=== PATIENT | female | born 1970 | race Caucasian/White ===

== ENCOUNTER 2021-12-28 08:28 | Outpatient (CLI) | payer OTHER, BC, SELFPAY ==
[2021-12-28 13:56] LABS: Iron* 30 ug/dL (37-170)
[2021-12-28 14:05] LABS: Percent Iron Saturation 8 % (20-50); Total Iron Binding Capacity 389 ug/dL (265-497)
[2021-12-28 14:18] LABS: Vitamin D 25 Hydroxy* 18 ng/mL (30-80)
[2021-12-28 14:38] LABS: HIV 1/2/P24 Combo Screen* Negative (Negative)
[2021-12-28 14:48] LABS: Vitamin B12* 879 pg/mL (243-894)
[2021-12-28 14:53] LABS: Hepatitis C Virus Antibody* Positive (Negative)
== END 2021-12-28 08:29 | disposition home or self-care (01) ==
PROVIDERS: PCP Physician Assistant Medical; Visit Provider Physician Assistant Medical
DX: D64.9 Anemia, unspecified (principal); R53.83 Other fatigue; E53.8 Deficiency of other specified B group vitamins; Z13.0 Encounter for screening for diseases of the blood and blood-forming organs and certain disorders involving the immune mechanism
CPT/HCPCS: 82306; 82607; 83540; 83550; 86703; 86803

== ENCOUNTER 2022-01-26 16:15 | Outpatient (CLI) | payer OTHER, BC, SELFPAY ==
[2022-01-26 21:16] LABS: Lipase* 212 U/L (23-300)
[2022-01-26 21:22] LABS: C Reactive Protein* 0.6 mg/dL (0.5-1.0)
[2022-01-27 15:18] LABS: Chloride* 101 mmol/L (96-114)
[2022-01-27 15:19] LABS: Potassium* 4.5 mmol/L (3.6-5.1); Sodium* 135 mmol/L (135-149)
[2022-01-27 15:21] LABS: Alkaline Phosphatase* 209 U/L (40-150); Aspartate Amino Transferase* 45 U/L (12-35); Bilirubin Total* 0.1 mg/dL (0.1-1.5); Blood Urea Nitrogen* 10 mg/dL (7-30); Carbon Dioxide* 25 mmol/L (20-32); Creatinine* 0.7 mg/dL (0.5-1.5); Estimated Glomerular Filt Rate 104 ml/min; Total Protein* 8.3 g/dL (6.0-8.3)
[2022-01-27 15:22] LABS: Alanine Aminotransferase* 37 U/L (4-35); Calcium* 8.8 mg/dL (8.4-10.6); Glucose* 51 mg/dL (60-115)
== END 2022-01-26 16:16 | disposition home or self-care (01) ==
PROVIDERS: PCP Physician Assistant Medical; Visit Provider Physician Assistant Medical
DX: R10.9 Unspecified abdominal pain (principal); L08.9 Local infection of the skin and subcutaneous tissue, unspecified; R76.8 Other specified abnormal immunological findings in serum; R53.83 Other fatigue
CPT/HCPCS: 80053; 83690; 86140

== ENCOUNTER 2022-01-27 14:34 | Outpatient (CLI) | payer OTHER, BC, SELFPAY ==
[2022-01-28 23:08] LABS: Albumin* 3.9 g/dL (3.3-5.0)
[2022-01-28 23:09] LABS: Chloride* 102 mmol/L (96-114); Potassium* 4.6 mmol/L (3.6-5.1); Sodium* 136 mmol/L (135-149)
[2022-01-28 23:11] LABS: Aspartate Amino Transferase* 45 U/L (12-35); Carbon Dioxide* 24 mmol/L (20-32); Creatinine* 0.7 mg/dL (0.5-1.5); Estimated Glomerular Filt Rate 104 ml/min; Total Protein* 8.1 g/dL (6.0-8.3)
[2022-01-28 23:12] LABS: Alanine Aminotransferase* 37 U/L (4-35); Alkaline Phosphatase* 215 U/L (40-150); Blood Urea Nitrogen* 10 mg/dL (7-30); Calcium* 8.8 mg/dL (8.4-10.6); Glucose* 51 mg/dL (60-115)
[2022-01-28 23:20] LABS: Bilirubin Total* < 0.1 mg/dL (0.1-1.5)
== END 2022-01-27 14:35 | disposition home or self-care (01) ==
LOC: LAB 14:47
PROVIDERS: PCP Physician Assistant Medical; Visit Provider Physician Assistant Medical
DX: R53.83 Other fatigue (principal); R76.8 Other specified abnormal immunological findings in serum; R50.9 Fever, unspecified; D64.9 Anemia, unspecified; L08.9 Local infection of the skin and subcutaneous tissue, unspecified; E55.9 Vitamin D deficiency, unspecified
CPT/HCPCS: 36415; 80053; 83516

== ENCOUNTER 2022-03-01 09:18 | Inpatient (IN) | payer OTHER, SELFPAY ==
[2022-03-01] VITALS (11 sets, daily range): BP systolic 126–166; BP diastolic 65–96; PULSE 82–103; RESP 16–22; TEMP 36.8–37.7; O2SAT 90–99; BMI 20.3; BMI 20.9
--- NOTE | 2022-03-01 09:43 | ED_ITS ---
HPI - General Adult General Time Seen by Provider: 09:43 Date Seen: 03/01/22 Chief complaint: Urogenital Problems, Female Stated complaint: fever,flank pain Time Seen by Provider: 03/01/22 09:43 Source: patient and RN notes reviewed Mode of arrival: ambulatory Limitations: no limitations History of Present Illness HPI narrative: Patient is a 51-year-old female coming in with concern of a fever that she cannot get to go away. She started with a fever last Monday, 6 days ago. She was noticing some burning with urination/dysuria but the urine looked clear. She tried to push fluids. The highest temperature she had was 104? F. Monday night she started with left abdominal pain/flank pain. She states she has had a history of urinary tract infection, history of pyelonephritis but it has been years. She also reports she has had a history of kidney stones. She denies any nausea or vomiting. Appetite is diminished. No diarrhea. She did not come in earlier as she did not want to miss the 1st day of school. She has no other focal infectious source such as coughing or respiratory symptoms. Patient has had a Fracisco-en-Y gastric bypass in 2007 per her report. She has had a gastric ulcer ulcer issue subsequently, further details not known. She does not drink alcohol, no drug use ever, no travel. Related Data Home Medications Medication Instructions Recorded Confirmed ascorbic acid (vitamin C) 500 mg 500 mg PO QDAY 12/28/21 01/26/22 tablet hydroxyzine pamoate 25 mg capsule 25 - 50 mg PO .HS PRN 12/28/21 01/26/22 levothyroxine 25 mcg capsule 25 mcg PO QDAY 12/28/21 01/26/22 lorazepam 0.5 mg tablet 0.5 - 1 mg PO Q4H PRN 12/28/21 01/26/22 nitroglycerin 2 % transdermal 1 inch topical TID PRN 12/28/21 01/26/22 ointment ondansetron 4 mg disintegrating 4 mg PO Q6H PRN 12/28/21 01/26/22 tablet sucralfate 1 gram tablet 1 g PO QID 12/28/21 01/26/22 Multivitamins PO 01/26/22 ferrous gluconate 325 mg (37 mg 324 mg PO QDAY 01/26/22 01/26/22 iron) tablet ipratropium 0.5 mg-albuterol 3 mg 1 ml inhalation PRN 01/26/22 01/26/22 (2.5 mg base)/3 mL nebulization soln Previous Rx's Medication Instructions Recorded doxycycline hyclate 100 mg tablet 100 mg PO BID #28 tabs 01/26/22 pantoprazole 40 mg tablet,delayed 40 mg PO BID #180 tabs 01/27/22 release (Protonix) cyanocobalamin (vitamin B-12) 1,000 mcg IM ONCE #10 mL 02/03/22 1,000 mcg/mL injection solution gabapentin 300 mg capsule 300 mg PO QID #90 caps 02/03/22 hydrocodone 5 mg-acetaminophen 325 1 tab PO Q4-6H PRN pain #20 tabs 02/24/22 mg tablet venlafaxine 75 mg capsule,extended 75 mg PO DAILY #90 caps 02/24/22 release 24 hr Allergies Allergy/AdvReac Type Severity Reaction Status Date / Time benzonatate Allergy Unknown Rash Verified 01/26/22 15:42 Ketorolac tromethamine Allergy Unknown Throat Uncoded 01/26/22 15:42 swelling Review of Systems Status of ROS: Reports: 10 or more systems reviewed and unremarkable except as noted in History and below [facility] Medical History (Updated 03/01/22 @ 12:35 by Miranda Orozco MD) Complications of gastric bypass surgery Flexor tenosynovitis of thumb History of blood transfusion History of cerebrovascular accident History of cocaine abuse History of depression History of gastric ulcer History of gastrostomy tube placement History of panic attacks History of primary hypertension Surgical History (Updated 03/01/22 @ 12:35 by Miranda Orozco MD) H/O gastric bypass History of appendectomy History of arthroscopic knee surgery History of cholecystectomy History of hysterectomy with oophorectomy Family History (Updated 12/28/21 @ 10:47 by Eliot Merritt) Father Alcohol abuse Colon cancer High blood pressure Sister Alcohol abuse Bipolar disorder Breast cancer Endometrial cancer Depression Hepatitis Ulcerative colitis Mother Anxiety disorder Bipolar disorder Heart disease Parkinsonism Maternal Grandmother Asthma Rheumatoid arthritis Daughter Attention deficit hyperactivity disorder (ADHD) Uncle Kidney disease Aunt Kidney disease Paternal Grandfather Rheumatoid arthritis Other Malignant melanoma Social History (Updated 12/28/21 @ 10:48 by Eliot Merritt) Narrative: , 3 children, age 31, 30, 11 years old smoker unemployed- lost job December 2020 Smoking Status: Former smoker Do you use any of these nicotine containing products: None How often do you have a drink containing alcohol: never How often do you have six or more drinks on one occasion: Never AUDIT-C Alcohol total score: 0 Non-prescribed substance use: denies use service: No Exam Const: Vital Signs, click to edit/add: Vital Signs - 24 hr 03/01/22 09:27 Temperature 99.8 F H Pulse Rate [Right Pulse Oximeter] 92 Respiratory Rate 22 Blood Pressure [Ri ght Upper Arm] 132/75 Pulse Oximetry 98 Oxygen Delivery Me thod Room Air Documenting provider has reviewed patient's vital signs: yes Common normals: no apparent distress, average body habitus, oriented x3, no limitations and healthy appearing General appearance: cooperative and well kempt Orientation/consciousness: Yes awake Other: She has had pain onto her left side of her abdomen, looks like she does not feel well but is in no distress. HENMT: Common normals: normocephalic, head/scalp atraumatic, hearing grossly normal bilaterally, external ears normal, EAC's normal, TM's normal bilaterally, external nose normal and nasal mucous membranes and turbinates normal Head and scalp: normocephalic and atraumatic Nose: external nose normal and nasal mucous membranes and turbinates normal External ear: external ears normal External auditory canal: EAC's normal Tympanic membrane: TM's normal bilaterally Mouth: moist mucous membranes abnormal (Dry mucous membranes, edentulous) Eye: Common normals: PERRL, EOMs intact bilaterally, conjunctivae normal and no scleral icterus General eye: normal appearance of both eyes Conjunctiva: conjunctiva(e) normal Pupil: PERRL Neck & C-Spine: Common normals: full ROM, no lymphadenopathy, supple, no meningeal signs, no JVD and thyroid normal Thyroid: thyroid normal Resp: Common normals: normal respiratory effort, no retractions, no use of accessory muscles and clear to auscultation bilaterally Auscultation: clear to auscultation bilaterally Cardio: Common normals: no JVD, regular rate, regular rhythm, S1 normal heart sound, S2 normal heart sound, no gallops, no clicks and no murmurs Rate: regular rate Rhythm: regular rhythm Heart sounds: S1 normal and S2 normal GI: Common normals: Normal to inspection, nondistended, normoactive bowel sounds present, soft to palpation, no hepatosplenomegaly and no masses P alpation: soft, tender (Left flank and left side of her abdomen with some mild guarding.) and no hepatosplenomegaly Extremity: Common normals: normal to inspection, full ROM, normal capillary refill, no joint enlargement, no clubbing, cyanosis or edema, no calf tenderness and no pedal edema Neuro: Common normals: oriented x3 Sensorium/orientation: awake Meningeal signs: no meningeal signs Psych: Appearance: well kempt Course Course Hospital Course: We will stab lotion IV, monitor on oximetry, she will receive a L of normal saline. We are going to get a full complement of labs including blood cultures in urinary testing. Will do screening COVID in case she needs hospitalization. I am going to proceed with CT abdomen pelvis noncontrast to rule out underlying kidney stones. She certainly seems to have an infectious source as the cause of her fever and apparently abdominal. Need to rule out acute surgical abdomen. In the differential infected kidney stones, pyelonephritis, atypical presentation diverticulitis all come to mind. We will get the CT to help us differentiate the etiology. Reevaluation(s) Reevaluation #1: Reviewed with patient that there does seem to be source of infection but it is not completely clear. She did end up getting some morphine and Zofran for pain management. This is not definitively clearly urinary. I will be talking to the hospitalist as well as our general surgeon to consult. I do think she is going to need admission for observation and further evaluation as to the etiology of the symptoms. Time: 12:10 Consultations Consultation #1: Have spoken with our hospitalist Dr. Montero regarding the situation. Again the etiology is not completely clear as to the source of infection this patient. He will plan on seeing her and decide on antibiotics. I did page our general surgeon to consult on this patient and have let Dr. Montero know this. I have not heard back from her yet and will direct her to Dr. Montero as this patient is being admitted. Vital Signs Vital signs: Initial Vital Signs Temperature 99.8 F H 03/01/22 09:27 Temperature Source Temporal Artery Scan 03/01/22 09:27 Pulse Rate 92 03/01/22 09:27 Respiratory Rate 22 03/01/22 09:27 Blood Pressure 132/75 03/01/22 09:27 Blood Pressure Mean 94 03/01/22 09:27 Blood Pressure Position Sitting 03/01/22 09:27 Pulse Oximetry 98 03/01/22 09:27 Oxygen Delivery Method 03/01/22 09:27 Vital Signs Temperature 99.8 F H 03/01/22 09:27 Pulse Rate 92 03/01/22 09:27 Respiratory Rate 22 03/01/22 09:27 Blood Pressure 132/75 03/01/22 09:27 Pulse Oximetry 98 03/01/22 09:27 Oxygen Delivery Method 03/01/22 09:27 Temperature 99.8 F H 03/01/22 09:27 Pulse Rate 92 03/01/22 09:27 Respiratory Rate 03/01/22 09:27 Blood Pressure 132/75 03/01/22 09:27 Pulse Oximetry 98 03/01/22 09:27 Oxygen Delivery Method 03/01/22 09:27 Medical Decision Making Lab Data Lab results reviewed: Yes I reviewed the patient's lab results Lab results narrative: She is anemic but given the history of a Fracisco-en-Y gastric bypass, my guess is that this is likely iron deficiency. This can be further worked up but have not done so here due to the volume and acuity in the ED. The hospitalist is aware of this. If this is truly iron deficiency, she is best suited having benefit here and not in acute blood transfusion. She is not seemingly symptomatic that I would feel she needs a blood transfusion over a more appropriate iron infusion if this truly is the case for her anemia. Labs: Lab Results 03/01/22 03/01/22 03/01/22 Range/Units 09:41 10:05 10:05 WBC 8.94 (4.50-11.00) K/uL RBC 3.47 L (4.00-5.20) m/uL Hgb 7.1 L* (12.0-16.0) gm/dL Hct 24.2 L (33.0-51.0) % MCV 70 L (80-100) fL MCH 21 L (26-34) pg MCHC 29 L (32-36) gm/dL RDW Coeff of Vinay 19.2 H (11.5-15.5) % Plt Count 258 (140-440) K/uL Neut % (Auto) 83.8 H (42.0-72.0) % Lymph % (Auto) 8.4 L (20-44) % [place] % (Auto) 7.0 (0.0-11.0) % Eos % (Auto) 0.3 (0.0-7.0) % Baso % (Auto) 0.2 (0.0-3.0) % Neut # (Auto) 7.50 H (1.7-7.0) K/uL Lymph # (Auto) 0.80 L (0.90-2.90) K/uL [place] # (Auto) 0.60 (0.00-0.90) K/UL Eos # (Auto) 0.03 (0.00-0.50) K/uL Baso # (Auto) 0.02 (0.00-0.30) K/uL Abs Immat Gran (auto) 0.03 (0.00-0.30) K/uL Diff Slide Review Acceptable Review (Acceptable) Sodium 134 L (135-149) mmol/L Potassium 3.5 L (3.6-5.1) mmol/L Chloride 101 (96-114) mmol/L Carbon Dioxide 24 (20-32) mmol/L BUN 10 (7-30) mg/dL Creatinine 0.7 (0.5-1.5) mg/dL Estimated Creat Clear 82.13 Estimated GFR 104 ml/min Glucose 123 H (60-115) mg/dL Lactate (0.5-1.9) mmol/L Calcium 8.3 L (8.4-10.6) mg/dL Total Bilirubin 0.3 (0.1-1.5) mg/dL AST 33 (12-35) U/L ALT 27 (4-35) U/L Alkaline Phosphatase 146 (40-150) U/L C-Reactive Protein 13.0 H (0.5-1.0) mg/dL Total Protein 7.5 (6.0-8.3) g/dL Albumin 3.6 (3.3-5.0) g/dL Urine RBC 2-5 A (0-2) Urine WBC 25-50 A (0-5) Ur Squamous Epith Cells Moderate A (None-Few) Urine Bacteria Moderate A (None) SARS-CoV-2 (PCR) (Negative) 03/01/22 03/01/22 Range/Units 10:05 10:05 WBC (4.50-11.00) K/uL RBC (4.00-5.20) m/uL Hgb (12.0-16.0) gm/dL Hct (33.0-51.0) % MCV (80-100) fL MCH (26-34) pg MCHC (32-36) gm/dL RDW Coeff of Vinay (11.5-15.5) % Plt Count (140-440) K/uL Neut % (Auto) (42.0-72.0) % Lymph % (Auto) (20-44) % [place] % (Auto) (0.0-11.0) % Eos % (Auto) (0.0-7.0) % Baso % (Auto) (0.0-3.0) % Neut # (Auto) (1.7-7.0) K/uL Lymph # (Auto) (0.90-2.90) K/uL [place] # (Auto) (0.00-0.90) K/UL Eos # (Auto) (0.00-0.50) K/uL Baso # (Auto) (0.00-0.30) K/uL Abs Immat Gran (auto) (0.00-0.30) K/uL Diff Slide Review (Acceptable) Sodium (135-149) mmol/L Potassium (3.6-5.1) mmol/L Chloride (96-114) mmol/L Carbon Dioxide (20-32) mmol/L BUN (7-30) mg/dL Creatinine (0.5-1.5) mg/dL Estimated Creat Clear Estimated GFR ml/min Glucose (60-115) mg/dL Lactate 1.9 (0.5-1.9) mmol/L Calcium (8.4-10.6) mg/dL Total Bilirubin (0.1-1.5) mg/dL AST (12-35) U/L ALT (4-35) U/L Alkaline Phosphatase (40-150) U/L C-Reactive Protein (0.5-1.0) mg/dL Total Protein (6.0-8.3) g/dL Albumin (3.3-5.0) g/dL Urine RBC (0-2) Urine WBC (0-5) Ur Squamous Epith Cells (None-Few) Urine Bacteria (None) SARS-CoV-2 (PCR) Negative SARS-CoV-2 (Negative) Imaging Data CT scan - abdomen: Attestation: I have reviewed the pertinent imaging results. Radiologist's impression: Patient: STACI DUDLEY Facility:?[facility] Patient ID:?[id number] Site Patient ID:?[id number]. Site :?[id number] Study:?CT Abdomen/Pelvis WITHOUT-03/01/2022 10:27:59 AM Ordering Physician:Jamar Jean Final Report: INDICATION: Fever. Left-sided pain. Flank pain. COMPARISON: None TECHNIQUE: CT examination of the abdomen and pelvis was performed without intravenous contrast. Thin section axial images were obtained from the lung bases through the pubic symphysis. Oral contrast was not administered. TECHNICAL NOTE: Technical limitations due to lack of oral contrast, lack of i ntravenous contrast and paucity of fat planes Please note that all CT scans at this facility use dose modulation, iterative reconstruction, and/or weight-based dosing when appropriate to reduce radiation dose to as low as reasonably achievable. FINDINGS: LUNG BASES: The heart is significantly enlarged. There is a moderate-sized hiatal hernia at the lung bases.The lung bases appear normal. LIVER/BILIARY SYSTEM:The liver is normal in size and configuration given the lack of intravenous contrast. There is no visible focal mass and there is no intra- or extra hepatic biliary ductal dilatation.The gallbladder surgically absent ADRENALS: Normal non-contrast appearance KIDNEYS, URETERS and BLADDER:The kidneys are normal in size. No calcified calculus and no indication of current or recent obstructive uropathy on either side. No specific post pull renal cause for left-sided flank pain. The bladder appears normal SPLEEN:Mildly enlarged. No focal mass PANCREAS: Normal non-contrast appearance. RETROPERITONEUM and MESENTERY: There is no mass, adenopathy or aortic aneurysm. AC inflammatory changes the peritoneal surfaces. GASTROINTESTINAL SYSTEM: Postoperative changes associated with gastric bypass. No visible mechanical obstruction. Mild diffuse prominence bowel without transition point may be due to a diffuse gastroenteritis. PELVIS: No mass or adenopathy. There is free fluid in the abdomen and pelvis with a significant amount of fluid within the cul-de-sac. The exact etiology of this is uncertain. OSSEOUS STRUCTURES and ABDOMINAL WALL: There is an age-appropriate appearance of the osseous structures.No significant abdominal wall defect. OTHER: No free fluid or free air. IMPRESSION: 1. Significantly enlarged heart. 2. Postoperative changes related to gastric bypass without specific visible complication. Mild diffuse prominence of bowel, especially small bowel without transition point to suggest mechanical obstruction. This may be related to diffuse enteritis. 3. There are hazy inflammatory changes in the peritoneal cavity and there is an abnormal quantity of free fluid in the abdomen and pelvis, especially within the cul de sac. The exact underlying etiology of this is uncertain 4. No evidence of calcified calculus. No evidence of current or recent obstructive uropathy. No definite focal inflammatory process of the colon such as diverticulitis. Please note that all CT scans at this facility use dose modulation, iterative reconstruction, and/or weight-based dosing when appropriate to reduce radiation dose to as low as reasonably achievable. Dictated by Jaime Muse MD @ 03/01/2022 10:41:00 AM (Electronic Signature) Chest x-ray: Attestation: I have reviewed the pertinent imaging results. Radiologist's impression: Patient: STACI DUDLEY Facility:?[facility] Patient ID:?[id number] Site Patient ID:?[id number]. Site :?[id number] Study:?XRay Chest PORTABLE-03/01/2022 11:33:54 AM Ordering Physician:Jamar Jean Final Report: INDICATION: FEVER TECHNIQUE: Chest 2 views. COMPARISON: 01/26/22 FINDINGS: Cardiovascular and mediastinum: Heart size and vasculature are normal in caliber and appearance. Mediastinum is within normal limits. Lungs and pleural spaces: Lungs are clear. No sign of infiltrate or mass. No sign of pleural effusion. No pneumothorax. Bones and soft tissues: No significant findings. IMPRESSION: Unremarkable chest. Dictated by: Magdy Kraft MD @ 03/01/2022 11:37:06 Critical Care Time Critical Care Time Critical Care Time: No Discharge Plan Discharge Clinical Impression: History of gastric bypass, Fever, Anemia, Abdominal pain Patient Disposition: Admitted As Inpatient Condition: Unchanged
--- NOTE | 2022-03-01 09:49 | CRLHL7_ITS ---
For Patients: As a result of the Century Cures Act, medical imaging exams and procedure reports are released immediately into your electronic medical record. You may view this report before your referring provider. If you have questions, please contact your health care provider. INDICATION: Fever. Left-sided pain. Flank pain. COMPARISON: None TECHNIQUE: CT examination of the abdomen and pelvis was performed without intravenous contrast. Thin section axial images were obtained from the lung bases through the pubic symphysis. Oral contrast was not administered. TECHNICAL NOTE: Technical limitations due to lack of oral contrast, lack of intravenous contrast and paucity of fat planes Please note that all CT scans at this facility use dose modulation, iterative reconstruction, and/or weight-based dosing when appropriate to reduce radiation dose to as low as reasonably achievable. FINDINGS: LUNG BASES: The heart is significantly enlarged. There is a moderate-sized hiatal hernia at the lung bases.The lung bases appear normal. LIVER/BILIARY SYSTEM:The liver is normal in size and configuration given the lack of intravenous contrast. There is no visible focal mass and there is no intra- or extra hepatic biliary ductal dilatation.The gallbladder surgically absent ADRENALS: Normal non-contrast appearance KIDNEYS, URETERS and BLADDER:The kidneys are normal in size. No calcified calculus and no indication of current or recent obstructive uropathy on either side. No specific post pull renal cause for left-sided flank pain. The bladder appears normal SPLEEN:Mildly enlarged. No focal mass PANCREAS: Normal non-contrast appearance. RETROPERITONEUM and MESENTERY: There is no mass, adenopathy or aortic aneurysm. AC inflammatory changes the peritoneal surfaces. GASTROINTESTINAL SYSTEM: Postoperative changes associated with gastric bypass. No visible mechanical obstruction. Mild diffuse prominence bowel without transition point may be due to a diffuse gastroenteritis. PELVIS: No mass or adenopathy. There is free fluid in the abdomen and pelvis with a significant amount of fluid within the cul-de-sac. The exact etiology of this is uncertain. OSSEOUS STRUCTURES and ABDOMINAL WALL: There is an age-appropriate appearance of the osseous structures.No significant abdominal wall defect. OTHER: No free fluid or free air. IMPRESSION: 1. Significantly enlarged heart. 2. Postoperative changes related to gastric bypass without specific visible complication. Mild diffuse prominence of bowel, especially small bowel without transition point to suggest mechanical obstruction. This may be related to diffuse enteritis. 3. There are hazy inflammatory changes in the peritoneal cavity and there is an abnormal quantity of free fluid in the abdomen and pelvis, especially within the cul de sac. The exact underlying etiology of this is uncertain 4. No evidence of calcified calculus. No evidence of current or recent obstructive uropathy. No definite focal inflammatory process of the colon such as diverticulitis. Please note that all CT scans at this facility use dose modulation, iterative reconstruction, and/or weight-based dosing when appropriate to reduce radiation dose to as low as reasonably achievable. Dictated by Jaime Muse MD @ 03/01/2022 10:41:00 AM (Electronically Signed)
[2022-03-01 10:07] LABS: Bacteria Urine Moderate; Squamous Epithelial Cell Urine Moderate (None-Few); WBC Urine 25-50 (0-5)
[2022-03-01 10:14] LABS: Lactate* 1.9 mmol/L (0.5-1.9)
[2022-03-01 10:17] LABS: Basophils Absolute Auto 0.02 K/uL (0.00-0.30); Basophils Percent Auto 0.2 % (0.0-3.0); Eosinophils Absolute Auto 0.03 K/uL (0.00-0.50); Eosinophils Percent Auto 0.3 % (0.0-7.0); Hematocrit 24.2 % (33.0-51.0); Immature Granulocytes Abs Auto 0.03 K/uL (0.00-0.30); Lymphocytes Percent Auto 8.4 % (20-44); Mean Corpuscular HGB Conc 29 gm/dL (32-36); Mean Corpuscular Hemoglobin 21 pg (26-34); Mean Corpuscular Volume 70 fL (80-100); Neutrophils Percent Auto 83.8 % (42.0-72.0); Platelet Count* 258 K/uL (140-440); RDW Coefficient of Variation % 19.2 % (11.5-15.5); Red Blood Count 3.47 m/uL (4.00-5.20); White Blood Count* 8.94 K/uL (4.50-11.00)
[2022-03-01] MEDS: 0.9 % SODIUM CHLORIDE 1000 ml 1,000 ML 500 ML IV (10:23)
[2022-03-01 10:49] LABS: SARS PCR* Negative SARS-CoV-2 (Negative)
[2022-03-01 10:53] LABS: Hemoglobin* 7.1 gm/dL (12.0-16.0); Slide Review Reflex Yes
[2022-03-01 10:54] LABS: Albumin* 3.6 g/dL (3.3-5.0); Chloride* 101 mmol/L (96-114); Sodium* 134 mmol/L (135-149)
[2022-03-01 10:55] LABS: Potassium* 3.5 mmol/L (3.6-5.1); Slide Review Acceptable Review (Acceptable)
[2022-03-01 10:58] LABS: Alanine Aminotransferase* 27 U/L (4-35); Alkaline Phosphatase* 146 U/L (40-150); Aspartate Amino Transferase* 33 U/L (12-35); Bilirubin Total* 0.3 mg/dL (0.1-1.5); Blood Urea Nitrogen* 10 mg/dL (7-30); Calcium* 8.3 mg/dL (8.4-10.6); Carbon Dioxide* 24 mmol/L (20-32); Creatinine* 0.7 mg/dL (0.5-1.5); Est. Creatinine Clearance* 82.13; Estimated Glomerular Filt Rate 104 ml/min; Glucose* 123 mg/dL (60-115); Total Protein* 7.5 g/dL (6.0-8.3)
--- NOTE | 2022-03-01 11:00 | ED.NURSE ---
dr rosenthal informed of cr hbg. 7.1.
--- NOTE | 2022-03-01 11:21 | CRLHL7_ITS ---
For Patients: As a result of the Century Cures Act, medical imaging exams and procedure reports are released immediately into your electronic medical record. You may view this report before your referring provider. If you have questions, please contact your health care provider. INDICATION: FEVER TECHNIQUE: Chest 2 views. COMPARISON: 01/26/22 FINDINGS: Cardiovascular and mediastinum: Heart size and vasculature are normal in caliber and appearance. Mediastinum is within normal limits. Lungs and pleural spaces: Lungs are clear. No sign of infiltrate or mass. No sign of pleural effusion. No pneumothorax. Bones and soft tissues: No significant findings. IMPRESSION: Unremarkable chest. Dictated by: Magdy Kraft MD @ 03/01/2022 11:37:06 (Electronically Signed)
[2022-03-01] MEDS: ONDANSETRON 2 MG/ML inj 4 MG IVP (11:40)
[2022-03-01] MEDS: MORPHINE 4 MG/ML INJ IVP (11:41)
[2022-03-01] MEDS: MORPHINE 2 MG/ML inj 4 MG IVP (12:51)
--- NOTE | 2022-03-01 13:41 | PM.IMHP1 ---
Hospitalist- H&P: HPI History of Present Illness Date Seen: 03/01/22 Chief complaint: fever,flank pain Narrative: Juan Jose Sanabria is a 51 year old female admitted to the hospital with 2 day history of left flank pain and 1 week history of fever. Patient has history of Fracisco-en-Y gastric bypass with revision, marginal ulcer with recurrence, rheumatoid arthritis, Raynaud's, scleroderma, chronic iron deficiency anemia, who presents with on and off fever for about a week. Temperatures at home have been between 100.9 and 104? F. she gets some relief from Tylenol. In the last 2 days she has also developed left flank pain. This was initially on and off but now is more persistent and severe. She reports also having some dysuria and urinary urgency and frequency. She says her urine otherwise looks normal. She does have a history of kidney stones. She has had evaluation this summer for what I believe is a marginal ulcer related to her Fracisco-en-Y gastric bypass. She had endoscopy in October showing an ulcer. She has been treated with Protonix and Carafate. Repeat endoscopy 2 weeks ago showed persistence of the ulcer. She has been referred to a bariatric surgery for evaluation of possible revision because of the persistence of the ulcer. She tells me that her Fracisco-en-Y gastric bypass was in 2007 and in 2008 she had a revision of her surgery due to a ulcer. In 2017 she was treated with a feeding tube to help heal her ulcer. She has had melanotic stools but not recently. She has not recently had problems with vomiting. She has had problems with Raynaud's/scleroderma affecting her fingers causing ulcerations in her fingertips. She reports these are relatively stable though ongoing symptomatic problems with most of her fingers. Review of Systems Narrative: She reports no new problems except those outlined above. She has not had cold, cough, sore throat, shortness of breath, chest pain. Chronic finger problems due to rain out's/scleroderma, she also reports chronic angular Woodard light is. She has not had problems with her rheumatoid arthritis causing joint inflammation. She is not currently being treated for rheumatoid arthritis. Review of systems otherwise negative except as noted above [facility] Medical History Complications of gastric bypass surgery Flexor tenosynovitis of thumb History of blood transfusion History of cerebrovascular accident History of cocaine abuse History of depression History of gastric ulcer History of gastrostomy tube placement History of panic attacks History of primary hypertension Surgical History H/O gastric bypass History of appendectomy History of arthroscopic knee surgery History of cholecystectomy History of hysterectomy with oophorectomy Family History Father Alcohol abuse Colon cancer High blood pressure Sister Alcohol abuse Bipolar disorder Breast cancer Endometrial cancer Depression Hepatitis Ulcerative colitis Mother Anxiety disorder Bipolar disorder Heart disease Parkinsonism Maternal Grandmother Asthma Rheumatoid arthritis Daughter Attention deficit hyperactivity disorder (ADHD) Uncle Kidney disease Aunt Kidney disease Paternal Grandfather Rheumatoid arthritis Other Malignant melanoma Social History (Updated 03/01/22 @ 13:54 by Randall Montero MD) Narrative: She lives in [facility], [place], operated by [facility] with friend and her 12-year-old daughter. She has a significant other, Fausto Delgado, who lives in [place]. She indicates he would be healthcare power of wood handler. Her code status is full. , 3 children, Currently works at an office job. Smoking Status: Former smoker Do you use any of these nicotine containing products: None How often do you have a drink containing alcohol: never How often do you have six or more drinks on one occasion: Never AUDIT-C Alcohol total score: 0 Non-prescribed substance use: denies use service: No Meds Home Medications and Allergies Home Medications Medication Instructions Recorded Confirmed Type ascorbic acid (vitamin C) 500 mg 500 mg PO QDAY 12/28/21 03/01/22 History tablet levothyroxine 25 mcg capsule 25 mcg PO QDAY 12/28/21 03/01/22 History ferrous gluconate 325 mg (37 mg 324 mg PO QDAY 01/26/22 03/01/22 History iron) tablet Allergies Allergy/AdvReac Type Severity Reaction Status Date / Time benzonatate Allergy Unknown Rash Verified 01/26/22 15:42 NSAIDS (Non-Steroidal AdvReac Verified 03/01/22 13:38 Anti-Inflamma Ketorolac tromethamine Allergy Unknown Throat Uncoded 01/26/22 15:42 swelling Exam Narrative: Exam Narrative: She is alert, tired appearing but otherwise in no distress. Eyes are normal. Sclerae nonicteric. Oropharynx with dry mucous membranes. She has cracking of her lips at the corners of her mouth with some small fissures and erythema consistent with angular chelitis. Neck is supple. She has no tenderness. She does have palpable lumps which may be salivary glands or small lymph nodes bilaterally. Nontender. No stridor. Respirations are clear to auscultation. Breathing is unlabored. Cardiovascular: S1, S2, regular rate and rhythm. No murmur gallop or rub. Abdomen: Bowel sounds active. Abdomen is soft with mild diffuse tenderness. She has CVA tenderness and left flank tenderness with palpation as well. I do not palpate a mass. There is no peritonitis. External genitalia normal. Extremities without edema. She has intact peripheral pulses. She moves all 4 extremities well. No rash Const: Vital Signs, click to edit/add: Vital Signs - 24 hr 03/01/22 09:27 Temperature 99.8 F H Pulse Rate [Right Pulse Oximeter] 92 Respiratory Rate 22 Blood Pressure [Ri ght Upper Arm] 132/75 Pulse Oximetry 98 Oxygen Delivery Me thod Room Air Documenting provider has reviewed patient's vital signs: yes Hospitalist - H&P: Result Labs Labs: Short CBC 03/01/22 Range/Units 10:05 WBC 8.94 (4.50-11.00) K/uL Hgb 7.1 L* (12.0-16.0) gm/dL Hct 24.2 L (33.0-51.0) % Plt Count 258 (140-440) K/uL BMP 03/01/22 10:05 Sodium 134 L Potassium 3.5 L Chloride 101 Carbon Dioxide 24 BUN 10 Creatinine 0.7 Glucose 123 H Calcium 8.3 L Liver Function 03/01/22 Range/Units 10:05 Total Bilirubin 0.3 (0.1-1.5) mg/dL AST 33 (12-35) U/L ALT 27 (4-35) U/L Alkaline Phosphatase 146 (40-150) U/L Albumin 3.6 (3.3-5.0) g/dL Imaging CT scan - abdomen: Radiologist's impression: [address] [address] Diagnostic Imaging Report Patient: Juan Jose Sanabria MR#: [id number] : 1970 Acct:[id number] Loc: ED Service Date: 03/01/[address]: Ordering Physician: Miranda Orozco M.D. Date of Service: 03/01/22 Procedure(s): CT abdomen pelvis wo con Accession Number(s): [id number] cc: Marisa Paul PA-C; Miranda Orozco M.D.~ For Patients:? As a result of the Cures Act, medical imaging exams and procedure reports are released immediately into your electronic medical record.? You may view this report before your referring provider.? If you have questions, please contact your health care provider. INDICATION: Fever. Left-sided pain. Flank pain. COMPARISON: None TECHNIQUE: CT examination of the abdomen and pelvis was performed without intravenous contrast. Thin section axial images were obtained from the lung bases through the pubic symphysis. Oral contrast was not administered.? TECHNICAL NOTE: Technical limitations due to lack of oral contrast, lack of intravenous contrast and paucity of fat planes Please note that all CT scans at this facility use dose modulation, iterative reconstruction, and/or weight-based dosing when appropriate to reduce radiation dose to as low as reasonably achievable. FINDINGS: LUNG BASES: The heart is significantly enlarged. There is a moderate-sized hiatal hernia at the lung bases.The lung bases appear normal. LIVER/BILIARY SYSTEM:The liver is normal in size and configuration given the lack of intravenous contrast. There is no visible focal mass and there is no intra- or extra hepatic biliary ductal dilatation.The gallbladder surgically absent ADRENALS: Normal non-contrast appearance KIDNEYS, URETERS and BLADDER:The kidneys are normal in size. No calcified calculus and no indication of current or recent obstructive uropathy on either side. No specific post pull renal cause for left-sided flank pain. The bladder appears normal SPLEEN:Mildly enlarged. No focal mass PANCREAS: Normal non-contrast appearance. RETROPERITONEUM and MESENTERY: There is no mass, adenopathy or aortic aneurysm. AC inflammatory changes the peritoneal surfaces. GASTROINTESTINAL SYSTEM: Postoperative changes associated with gastric bypass. No visible mechanical obstruction. Mild diffuse prominence bowel without transition point may be due to a diffuse gastroenteritis. PELVIS: No mass or adenopathy. There is free fluid in the abdomen and pelvis with a significant amount of fluid within the cul-de-sac. The exact etiology of this is uncertain. OSSEOUS STRUCTURES and ABDOMINAL WALL: There is an age-appropriate appearance of the osseous structures.No significant abdominal wall defect. OTHER: No free fluid or free air. IMPRESSION: 1. Significantly enlarged heart. 2. Postoperative changes related to gastric bypass without specific visible complication. Mild diffuse prominence of bowel, especially small bowel without transition point to suggest mechanical obstruction. This may be related to diffuse enteritis. 3. There are hazy inflammatory changes in the peritoneal cavity and there is an abnormal quantity of free fluid in the abdomen and pelvis, especially within the cul de sac. The exact underlying etiology of this is uncertain 4. No evidence of calcified calculus. No evidence of current or recent obstructive uropathy. No definite focal inflammatory process of the colon such as diverticulitis. Please note that all CT scans at this facility use dose modulation, iterative reconstruction, and/or weight-based dosing when appropriate to reduce radiation dose to as low as reasonably achievable. Dictated by Jaime Muse MD @ 03/01/2022 10:41:00 AM (Electronically Signed) Assessment and Plan Assessment and plan (1) Fever: Problem comment: Cause is uncertain. Will start antibiotic therapy for urinary tract infection/pyelonephritis. Await cultures and clinical course. Status: Acute (2) Abdominal pain: Problem comment: Possibly due to pyelonephritis. Patient has relatively complicated abdominal history and multiple other diagnoses are considered. Status: Acute (3) Urinary tract infection: Problem comment: Possible cause of flank pain and and fever. Await cultures and clinical course Status: Acute (4) Iron deficiency anemia: Problem comment: Acute on chronic. 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 IV iron Status: Acute (5) Gastric ulcer: Problem comment: 12/13/2021-EGD location jejunal side of the anastomosis from previous gastric bypass; evaluated [facility] switched to Protonix 40 mg twice daily and Carafate. EGD in late January showed persistence of the ulcer. Referred to surgery for possible revision of Fracisco-en-Y surgery to help heal ulcer Status: Acute Plan Admit to the hospital for evaluation management of fever, flank pain, UTI, anemia. Plan of care discussed with the patient and she is agreement with this total time spent today is 75 minutes, 50 minutes in coordination of care and discussing with patient and other providers ongoing evaluation management of fever, flank pain and anemia
[2022-03-01 13:53] LABS: Appearance Urine Slightly Cloudy (Clear); Color Urine Yellow (Yellow)
[2022-03-01 13:54] LABS: Bilirubin Urine Negative (Negative); Blood Urine Trace-intact (Negative); Glucose Urine Negative (Negative); Ketones Urine Negative (Negative); Leukocyte Esterase Urine 1+ (Negative); Nitrite Urine Negative (Negative); Protein Urine Trace (Negative); pH Urine 6.5 (5.0-8.5)
[2022-03-01] MEDS: MORPHINE 2 MG/ML inj IVP ×2 (14:30→16:41)
[2022-03-01] MEDS: cefTRIAXone 1 GM in 0.9 % SODIUM CHLORIDE Mini-bag 100 ML IVPB (14:30)
[2022-03-01] MEDS: ACETAMINOPHEN 325 MG TABLET 650 MG PO (14:37)
[2022-03-01] MEDS: ASCORBIC ACID 500 MG TABLET PO (14:37)
--- NOTE | 2022-03-01 16:07 | PM.GSCN ---
History of Present Illness Consult details Date Seen: 03/01/22 Consult date: 03/01/22 Narrative: 51-year-old female was admitted to the hospital with abdominal pain and I was asked by Dr. Montero to see her in consultation. Patient states that on Monday she started to experience left flank pain. The pain was ?building? for few days before that but became intense on Monday. Patient also had a fever on Monday up to 104.2. She took Tylenol and that helped with her fever. Patient's pain was getting significantly worse but she was trying to stay home until she could send her daughter to school on the first day of school. Patient then presented to the emergency room today. Patient describes the pain as intense. It is not changed with eating, heavy lifting, or having bowel movements. Patient thinks that her last bowel movement was yesterday and she has been having daily bowel movements. She thinks that she was passing gas yesterday but is not sure about today. She does not feel hungry. Patient did have dysuria and increased urinary frequency about 1 week ago. Patient has a history of left pyelonephritis in the past. She thinks that the pain was somewhat similar to the pain experienced now but not as intense. Patient's history is also complex due to the fact that she had Fracisco-en-Y gastric bypass in 2007. She then had a revision of her bypass for marginal ulcer. She states that the ulcer came back in 2016 and she was treated with medications. She had an attempt at 3 feeding tubes placed in her gastric remnant but the gastric remnant ?did not wake up? and that was not successful. Patient then underwent another revision of her bypass in 2017. This was done at [facility]. Patient states that she usually has epigastric pain when her ulcer is bothering her. She had an EGD in October 2021 at [facility] and had a follow-up EGD 2 weeks ago to evaluate her ulcer. Her marginal ulcer was still present and patient was referred to [facility] to see gastric bypass for evaluation. Patient has been having trouble maintaining her weight. In the last 2 months she lost about 8 lb. She is trying very hard to gain weight. Patient used to be a smoker and quit 2 months ago. She denies drinking alcohol. She denies taking ibuprofen or other NSAIDs. In the emergency room patient was found to have a normal WBC. Her hemoglobin was 7.1 and was at 7 2 weeks ago. She had elevated CRP of 13. Her liver function tests were normal and albumin was at the low range of normal. Patient's UA had cloudy appearance, with trace protein and trace blood, moderate bacteria and 25-[address] without contrast was obtained that showed moderately-sized hiatal hernia. This did not show in obstructing stone on the left side. There was some prominent loops of bowel and increased amount of fluid in the cul-de-sac. Review of Systems Narrative: General: + fevers at home HENT: no problems swallowing CV: no shortness of breath Resp: no cough GI: see above : see above Skin: no new rashes Musculoskeletal: no back pain Neuro: h/o Raynaud's and RA Psyche: no depression, no anxiety PFSH PFSH Medical History (Updated 03/01/22 @ 16:41 by Beth Garcia MD) Complications of gastric bypass surgery Flexor tenosynovitis of thumb History of blood transfusion History of cerebrovascular accident History of cocaine abuse History of depression History of gastric ulcer History of gastrostomy tube placement History of panic attacks History of primary hypertension Pyelonephritis Systemic sclerosis Surgical History (Updated 03/01/22 @ 16:41 by Beth Garcia MD) H/O gastric bypass History of appendectomy History of arthroscopic knee surgery History of cholecystectomy History of hysterectomy with oophorectomy Family History (Updated 03/01/22 @ 16:10 by Beth Garcia MD) Father Alcohol abuse Colon cancer High blood pressure Sister Alcohol abuse Bipolar disorder Breast cancer Endometrial cancer Depression Hepatitis Ulcerative colitis Colon cancer Ovarian cancer Mother Anxiety disorder Bipolar disorder Heart disease Parkinsonism Colon cancer Maternal Grandmother Asthma Rheumatoid arthritis Daughter Attention deficit hyperactivity disorder (ADHD) Uncle Kidney disease Aunt Kidney disease Paternal Grandfather Rheumatoid arthritis Other Malignant melanoma Social History (Updated 03/01/22 @ 13:54 by Randall Montero MD) Narrative: She lives in [facility], [place], operated by [facility] with friend and her 12-year-old daughter. She has a significant other, Fausto Delgado, who lives in [place]. She indicates he would be healthcare power of commonwealth attorney. Her code status is full. , 3 children, Currently works at an office job. Smoking Status: Former smoker Do you use any of these nicotine containing products: None How often do you have a drink containing alcohol: never How often do you have six or more drinks on one occasion: Never AUDIT-C Alcohol total score: 0 Non-prescribed substance use: denies use service: No Meds Home Medications and Allergies Home Medications Medication Instructions Recorded Confirmed Type ascorbic acid (vitamin C) 500 mg 500 mg PO QDAY 12/28/21 03/01/22 History tablet levothyroxine 25 mcg capsule 25 mcg PO QDAY 12/28/21 03/01/22 History ferrous gluconate 325 mg (37 mg 324 mg PO QDAY 01/26/22 03/01/22 History iron) tablet hydroxyzine pamoate 25 mg capsule 25 mg PO HS PRN 03/01/22 03/01/22 History lorazepam 0.5 mg tablet 0.5 mg PO Q4H PRN 03/01/22 03/01/22 History sucralfate 1 gram tablet 1 g PO QID 03/01/22 03/01/22 History Allergies Allergy/AdvReac Type Severity Reaction Status Date / Time benzonatate Allergy Unknown Rash Verified 01/26/22 15:42 NSAIDS (Non-Steroidal AdvReac Verified 03/01/22 13:38 Anti-Inflamma Ketorolac tromethamine Allergy Unknown Throat Uncoded 01/26/22 15:42 swelling Exam Narrative: Exam Narrative: General appearance: Alert, cooperative, and in no distress Pulmonary: Chest symmetric, lungs clear bilaterally Cardiovascular Heart: Regular rate and rhythm, S1, S2, no murmurs/rubs/gallops Gastrointestinal Abdominal: soft, not distended, tender to palpation in epigastrium and left upper quadrant, with only minimal tenderness to palpation in the right lower quadrant. Skin: No rashes or lesions. Psychiatric: Alert, cooperative, normal affect. Const: Vital Signs, click to edit/add: Vital Signs - 24 hr 03/01/22 09:27 03/01/22 13:58 03/01/22 14:37 Temperature 99.8 F H 99.8 F H 99.8 F H Pulse Rate [Apical ] 92 Pulse Rate [Right Pulse Oximeter] 92 Respiratory Rate 22 18 Blood Pressure [Ri ght Arm] 137/65 Blood Pressure [Ri ght Upper Arm] 132/75 Pulse Oximetry 98 96 Oxygen Delivery Me thod Room Air Room Air 03/01/22 10:28 03/01/22 11:00 03/01/22 11:30 Temperature Pulse Rate [Apical ] Pulse Rate [Right Pulse Oximeter] 82 91 87 Respiratory Rate 20 Blood Pressure [Ri ght Arm] Blood Pressure [Ri ght Upper Arm] 141/75 H 165/92 H 166/96 H Pulse Oximetry 99 98 98 Oxygen Delivery Me thod Room Air Room Air Room Air 03/01/22 12:00 03/01/22 12:30 Temperature Pulse Rate [Apical ] Pulse Rate [Right Pulse Oximeter] 86 87 Respiratory Rate Blood Pressure [Ri ght Arm] Blood Pressure [Ri ght Upper Arm] 139/70 140/74 H Pulse Oximetry 97 97 Oxygen Delivery Me thod Room Air Room Air Results Labs Labs: Abnormal lab results 03/01/22 03/01/22 03/01/22 Range/Units 09:41 10:05 10:05 RBC 3.47 L (4.00-5.20) m/uL Hgb 7.1 L* (12.0-16.0) gm/dL Hct 24.2 L (33.0-51.0) % MCV 70 L (80-100) fL MCH 21 L (26-34) pg MCHC 29 L (32-36) gm/dL RDW Coeff of Vinay 19.2 H (11.5-15.5) % Neut % (Auto) 83.8 H (42.0-72.0) % Lymph % (Auto) 8.4 L (20-44) % Neut # (Auto) 7.50 H (1.7-7.0) K/uL Lymph # (Auto) 0.80 L (0.90-2.90) K/uL Sodium 134 L (135-149) mmol/L Potassium 3.5 L (3.6-5.1) mmol/L Glucose 123 H (60-115) mg/dL Calcium 8.3 L (8.4-10.6) mg/dL C-Reactive Protein 13.0 H (0.5-1.0) mg/dL Urine Appearance Slightly Cloudy A (Clear) Urine Protein Trace A (Negative) Urine Blood Trace-intact A (Negative) Ur Leukocyte Esterase 1+ A (Negative) Urine RBC 2-5 A (0-2) Urine WBC 25-50 A (0-5) Ur Squamous Epith Cells Moderate A (None-Few) Urine Bacteria Moderate A (None) Diabetes panel 03/01/22 Range/Units 10:05 Sodium 134 L (135-149) mmol/L Potassium 3.5 L (3.6-5.1) mmol/L Chloride 101 (96-114) mmol/L Carbon Dioxide 24 (20-32) mmol/L BUN 10 (7-30) mg/dL Creatinine 0.7 (0.5-1.5) mg/dL Glucose 123 H (60-115) mg/dL Calcium 8.3 L (8.4-10.6) mg/dL AST 33 (12-35) U/L ALT 27 (4-35) U/L Alkaline Phosphatase 146 (40-150) U/L Total Protein 7.5 (6.0-8.3) g/dL Albumin 3.6 (3.3-5.0) g/dL Calcium panel 03/01/22 Range/Units 10:05 Calcium 8.3 L (8.4-10.6) mg/dL Albumin 3.6 (3.3-5.0) g/dL Pituitary panel 03/01/22 Range/Units 10:05 Sodium 134 L (135-149) mmol/L Potassium 3.5 L (3.6-5.1) mmol/L Chloride 101 (96-114) mmol/L Carbon Dioxide 24 (20-32) mmol/L BUN 10 (7-30) mg/dL Creatinine 0.7 (0.5-1.5) mg/dL Glucose 123 H (60-115) mg/dL Calcium 8.3 L (8.4-10.6) mg/dL Adrenal panel 03/01/22 Range/Units 10:05 Sodium 134 L (135-149) mmol/L Potassium 3.5 L (3.6-5.1) mmol/L Chloride 101 (96-114) mmol/L Carbon Dioxide 24 (20-32) mmol/L BUN 10 (7-30) mg/dL Creatinine 0.7 (0.5-1.5) mg/dL Glucose 123 H (60-115) mg/dL Calcium 8.3 L (8.4-10.6) mg/dL Total Bilirubin 0.3 (0.1-1.5) mg/dL AST 33 (12-35) U/L ALT 27 (4-35) U/L Alkaline Phosphatase 146 (40-150) U/L Total Protein 7.5 (6.0-8.3) g/dL Albumin 3.6 (3.3-5.0) g/dL All other labs normal. Assessment and Plan Assessment and plan (1) History of gastric bypass: Problem comment: with marginal ulcer Status: Acute (2) Abdominal pain: Status: Acute Plan 51-year-old female with complex surgical history presents with abdominal pain and fever of unknown etiology. I discussed with the patient her imaging and laboratory findings. It sounds like patient has first symptoms were urinary symptoms with increasing flank pain to the point of severe left flank pain. This would be suggestive of pyelonephritis. Patient is treated with antibiotics currently. However, given the complex history with her gastric bypass and 2 revisions for an ulcer with recent EGD showing persistence of ulcer, a contained perforation of the marginal ulcer is also on differential diagnosis. Patient did not have any fluid or free air near her gastric bypass. I recommended to proceed with upper GI tomorrow to evaluate for perforation. Patient should be NPO until upper GI. Patient is already on b.i.d. omeprazole and we will add Carafate q.i.d. for treatment of marginal ulcer. Patient is quite complex and if she is not improving on IV antibiotics, I discussed with her that we might need to consider transferring her to [facility] for further workup. This is the hospital where she was referred for bariatric surgery evaluation.
[2022-03-01] MEDS: LACTATED RINGERS 1000 ML 1,000 ML 100 ML IV (16:41)
[2022-03-01] MEDS: SUCRALFATE 1 GM TABLET PO ×2 (17:32→21:28)
[2022-03-01] MEDS: GABAPENTIN 300 MG CAPSULE PO ×2 (17:32→20:31)
--- NOTE | 2022-03-01 19:49 | PC.NURSE ---
Patient reports Dilaudad has worked well in the past for pain control. Dr. Joyner changed Morphine to Dilaudad. Conflict exists due to allergy to Toradol of throat swelling. Verified with pharmacist (remote pharmacy) who has stated this is safe to give in this instance.
[2022-03-01] MEDS: HYDROmorphone 0.5 mg/0.5 ml inj IVP ×2 (20:19→23:37)
[2022-03-01] MEDS: OMEPRAZOLE 20 MG CAPSULE DR 40 MG PO (20:31)
--- NOTE | 2022-03-01 21:42 | PC.NURSE ---
VSS RA. L Abd/flank pain / increasing w/light palpation and patient looked like she was feeling it. Dr. Joyner gave order for Dilaudid and Aqua K also given w/relief. Bowel tones hypoactive. C/o burning w/urination. Up ad roland in room ind w/cares. NPO w/sips for meds. Sucralfate slurry given 1 hour after Prilosec.
[2022-03-01 22:35] LABS: Barbiturate Screen Urine Negative (Negative); Benzodiazepines Screen Urine Negative (Negative); Cocaine Screen Urine Negative (Negative); Methadone Screen Urine Negative (Negative); Oxycodone Screen Urine Negative (Negative); Phencyclidine Screen Urine Negative (Negative); Tricyclic Antidepressant Urine Negative (Negative)
[2022-03-01 22:40] LABS: Amphetamine Screen Urine POSITIVE (Negative); Cannabinoid Screen Urine POSITIVE (Negative); Methamphetamines Screen Urine POSITIVE (Negative); Opiate Screen Urine POSITIVE (Negative)
[2022-03-01 22:55] LABS: Procalcitonin* 0.33 ng/mL (<0.50)
[2022-03-02] VITALS (13 sets, daily range): BP systolic 113–129; BP diastolic 57–95; PULSE 71–104; RESP 14–16; TEMP 36.6–38.9; O2SAT 90–94
[2022-03-02] MEDS: HYDROmorphone 0.5 mg/0.5 ml inj IVP ×7 (01:43→21:42)
[2022-03-02] MEDS: LACTATED RINGERS 1000 ML 1,000 ML 100 ML IV (01:47)
[2022-03-02] MEDS: ACETAMINOPHEN 325 MG TABLET 650 MG PO (05:55)
--- NOTE | 2022-03-02 06:01 | PC.NURSE ---
Shift Note 23-07: Pt pleasant and cooperative, vitals have been stable with the exception of consistently elevated HR and recently a low grade temperature of 100.7 @ 0545. Tylenol administered, will continue to monitor. Pt has remained NPO with the exception of sips of water with PO meds in anticipation of UGI scope. Pain has been poorly controlled with IV Dilaudid, bouncing between 4-9/10. Pt reports not sleeping well, however nurse observed Pt asleep on rounds @ 0300 and 0500. See eMAR for medication administration.
[2022-03-02] MEDS: LEVOTHYROXINE 25 MCG TABLET PO (07:35)
[2022-03-02] MEDS: SUCRALFATE 1 GM TABLET PO ×4 (07:36→21:42)
[2022-03-02 08:19] LABS: Lactate* 0.9 mmol/L (0.5-1.9)
[2022-03-02 08:23] LABS: Basophils Absolute Auto 0.03 K/uL (0.00-0.30); Basophils Percent Auto 0.3 % (0.0-3.0); Eosinophils Absolute Auto 0.05 K/uL (0.00-0.50); Eosinophils Percent Auto 0.6 % (0.0-7.0); Hematocrit 24.5 % (33.0-51.0); Hemoglobin* 6.9 gm/dL (12.0-16.0); Immature Granulocytes Abs Auto 0.02 K/uL (0.00-0.30); Lymphocytes Percent Auto 8.8 % (20-44); Mean Corpuscular HGB Conc 28 gm/dL (32-36); Mean Corpuscular Hemoglobin 20 pg (26-34); Mean Corpuscular Volume 71 fL (80-100); Monocytes Percent Auto 8.6 % (0.0-11.0); Neutrophils Percent Auto 81.5 % (42.0-72.0); Platelet Count* 266 K/uL (140-440); RDW Coefficient of Variation % 19.6 % (11.5-15.5); Red Blood Count 3.44 m/uL (4.00-5.20); Slide Review Reflex No; White Blood Count* 8.98 K/uL (4.50-11.00)
[2022-03-02 08:34] LABS: Chloride* 105 mmol/L (96-114); Potassium* 3.6 mmol/L (3.6-5.1); Sodium* 137 mmol/L (135-149)
[2022-03-02 08:37] LABS: Creatinine* 0.8 mg/dL (0.5-1.5); Est. Creatinine Clearance* 71.03; Estimated Glomerular Filt Rate 89 ml/min
[2022-03-02 08:38] LABS: Blood Urea Nitrogen* 10 mg/dL (7-30); Calcium* 8.2 mg/dL (8.4-10.6); Carbon Dioxide* 23 mmol/L (20-32); Glucose* 99 mg/dL (60-115)
[2022-03-02 08:58] LABS: C Reactive Protein* 13.1 mg/dL (0.5-1.0)
[2022-03-02] MEDS: VENLAFAXINE ER 75 MG CAPSULE PO (08:59)
[2022-03-02] MEDS: ASCORBIC ACID 500 MG TABLET PO (08:59)
[2022-03-02] MEDS: GABAPENTIN 300 MG CAPSULE PO ×4 (08:59→20:31)
[2022-03-02] MEDS: OMEPRAZOLE 20 MG CAPSULE DR 40 MG PO ×2 (08:59→20:31)
--- NOTE | 2022-03-02 11:15 | CRLHL7_ITS ---
For Patients: As a result of the Century Cures Act, medical imaging exams and procedure reports are released immediately into your electronic medical record. You may view this report before your referring provider. If you have questions, please contact your health care provider. Technique: Single contrast water soluble upper GI performed. Fluoroscopy time 50 seconds. Indication: Ulcer adjacent to the gastric bypass. Evaluate for perforation. Comparison: CT 03/01/2022 Findings: Upright single contrast upper GI performed with water-soluble contrast. 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 There is no obstruction to the flow of barium. Irregularity of the gastric remnant mucosa noted corresponding to the area of concern per report from EGD. No extravasation of contrast, however. Normal appearance of the jejunum. Impression: No evidence of perforation regarding the gastric remnant ulcer. Dictated by Magdy Tompkins MD @ 03/02/2022 12:14:46 PM (Electronically Signed)
--- NOTE | 2022-03-02 13:36 | PM.IMPN1 ---
Progress Note: A&P Assessment and plan (1) History of gastric bypass: Problem details: with marginal ulcer. Upper GI x-ray today showed no extravasation of contrast. Status: Acute (2) Urinary tract infection: Problem details: Possible cause of flank pain and and fever. Await cultures and clinical course Status: Acute (3) Fever: Problem details: Cause is uncertain. Will start antibiotic therapy for urinary tract infection/pyelonephritis. Await cultures and clinical course. Status: Acute (4) Abdominal pain: Problem details: Possibly due to pyelonephritis. Patient has relatively complicated abdominal history and multiple other diagnoses are considered. Status: Acute (5) Iron deficiency anemia: Problem details: Acute on chronic. 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 IV iron once her infection is improving. Blood transfusion today Status: Acute (6) Substance abuse: Problem details: Likely ongoing substance abuse. Status: Acute Plan Continue in hospital for management of abdominal pain and fever. Will need more specialty care for her marginal ulcer and gastric bypass. More acutely may need Infectious Disease involvement. Currently unable to transfer people to tertiary care for specialty consultations due to bed shortage Time Spent With Patient Total time spent: Total time spent today is 35 minutes, 25 minutes in coordination of care and discussing with patient and other providers evaluation and management of abdominal pain and fever Subjective Date Seen: 03/02/22 Interval history: 51-year-old female admitted with fever, left flank pain, fatigue, malaise. 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 Clinically suspected to have pyelonephritis. Patient has been on ceftriaxone. Today she reports still having fevers and flank pain and does not feel any better. Urine drug screen from yesterday showed amphetamines/methamphetamine and THC. Patient tells me that she does not use methamphetamine but her roommate does. She does have a history of cocaine use in the past. Exam Narrative: Exam Narrative: She is tired appearing but otherwise alert and in no distress. Respirations are clear to auscultation. Cardiovascular: S1, S2, regular rate and rhythm. Abdomen: Bowel sounds active. Abdomen is soft with mild diffuse tenderness and mild to moderate left-sided tenderness. No mass. Extremities no edema. Const: Vital Signs, click to edit/add: Vital Signs - 24 hr 03/01/22 13:58 03/01/22 14:37 03/01/22 15:30 Temperature 99.8 F H 99.8 F H 98.8 F Pulse Rate Pulse Rate [Apical ] 92 Respiratory Rate 18 Blood Pressure Blood Pressure [Ri ght Arm] 137/65 Pulse Oximetry 96 Oxygen Delivery Me thod Room Air 03/01/22 19:50 03/01/22 23:00 03/01/22 23:00 Temperature 98.9 F 98.2 F Pulse Rate Pulse Rate [Apical ] 89 103 H 103 H Respiratory Rate 16 16 16 Blood Pressure Blood Pressure [Ri ght Arm] 138/83 126/83 Pulse Oximetry 92 90 Oxygen Delivery Me thod Room Air Room Air 03/02/22 05:55 03/02/22 05:45 03/02/22 07:24 Temperature 100.7 F H 100.7 F H 102.0 F H Pulse Rate Pulse Rate [Apical ] 104 H Respiratory Rate 16 Blood Pressure Blood Pressure [Ri ght Arm] 116/67 Pulse Oximetry Oxygen Delivery Me thod 03/02/22 07:30 03/02/22 07:30 03/02/22 10:00 Temperature 102.0 F H 98.8 F Pulse Rate Pulse Rate [Apical ] 102 H 102 H Respiratory Rate 16 16 Blood Pressure Blood Pressure [Ri ght Arm] 129/57 L Pulse Oximetry 91 Oxygen Delivery Me thod Room Air 03/02/22 12:15 03/02/22 12:15 03/02/22 12:30 Temperature 97.8 F 97.8 F 98.2 F Pulse Rate 75 71 Pulse Rate [Apical ] 75 Respiratory Rate 16 16 16 Blood Pressure 118/74 115/68 Blood Pressure [Ri ght Arm] 118/74 Pulse Oximetry 93 93 91 Oxygen Delivery Me od Room Air 03/02/22 13:15 Temperature 98 F Pulse Rate 76 Pulse Rate [Apical ] Respiratory Rate 16 Blood Pressure 118/70 Blood Pressure [Ri ght Arm] Pulse Oximetry 94 Oxygen Delivery Me thod Documenting provider has reviewed patient's vital signs: yes Labs Labs: Laboratory Results - last 24 hr 03/01/22 03/01/22 03/01/22 09:41 09:41 10:00 WBC RBC Hgb Hct MCV MCH MCHC RDW Coeff of Vinay Plt Count Neut % (Auto) Lymph % (Auto) [place] % (Auto) Eos % (Auto) Baso % (Auto) Neut # (Auto) Lymph # (Auto) [place] # (Auto) Eos # (Auto) Baso # (Auto) Abs Immat Gran (auto) Sodium Potassium Chloride Carbon Dioxide BUN Creatinine Estimated Creat Clear Estimated GFR Glucose Lactate Calcium C-Reactive Protein Procalcitonin Urine Color Yellow Urine Appearance Slightly Cloudy A Urine pH 6.5 Ur Specific [place] 1.010 Urine Protein Trace A Urine Glucose (UA) Negative Urine Ketones Negative Urine Blood Trace-intact A Urine Nitrite Negative Urine Bilirubin Negative Urine Urobilinogen 1.0 Ur Leukocyte Esterase 1+ A Urine RBC Cancelled Urine WBC Cancelled Urine WBC Clumps Cancelled Ur Squamous Epith Cells Cancelled [place] Biurate Crystals Cancelled Calcium Carbonate Cryst Cancelled Calcium Phosphate Cryst Cancelled Calcium Oxalate Crystal Cancelled Cystine Crystals Cancelled Uric Acid Crystals Cancelled Triple Phos Crystals Cancelled Sulfur Crystals Cancelled Cholesterol Crystals Cancelled Tyrosine Crystals Cancelled Hippuric Acid Crystals Cancelled Amorphous Sediment Cancelled Other Sediment Cancelled Urine Bacteria Cancelled Fatty Casts Cancelled Hyaline Casts Cancelled Fine Granular Casts Cancelled Coarse Granular Casts Cancelled Waxy Casts Cancelled RBC Casts Cancelled WBC Casts Cancelled Other Casts Cancelled Urine Starch Cancelled Urine Mucus Cancelled Urine Trichomonas Cancelled Urine Yeast Cancelled Urine Opiates Screen POSITIVE A* Ur Oxycodone Screen Negative Urine Methadone Screen Negative Ur Propoxyphene Screen Negative Ur Barbiturates Screen Negative U Tricyclic Antidepress Negative Ur Phencyclidine Scrn Negative Ur Amphetamines Screen POSITIVE A* U Methamphetamines Scrn POSITIVE A* U Benzodiazepines Scrn Negative Urine Cocaine Screen Negative U Marijuana (THC) Screen POSITIVE A* Ur Drug Screen Comment See Note Blood Type Antibody Screen Crossmatch (AHG) 03/01/22 03/02/22 03/02/22 10:05 08:10 08:10 WBC 8.98 RBC 3.44 L Hgb 6.9 L* Hct 24.5 L MCV 71 L MCH 20 L MCHC 28 L RDW Coeff of Vinay 19.6 H Plt Count 266 Neut % (Auto) 81.5 H Lymph % (Auto) 8.8 L [place] % (Auto) 8.6 Eos % (Auto) 0.6 Baso % (Auto) 0.3 Neut # (Auto) 7.30 H Lymph # (Auto) 0.80 L [place] # (Auto) 0.80 Eos # (Auto) 0.05 Baso # (Auto) 0.03 Abs Immat Gran (auto) 0.02 Sodium 137 Potassium 3.6 Chloride 105 Carbon Dioxide 23 BUN 10 Creatinine 0.8 Estimated Creat Clear 71.03 Estimated GFR 89 Glucose 99 Lactate Calcium 8.2 L C-Reactive Protein 13.1 H Procalcitonin 0.33 Urine Color Urine Appearance Urine pH Ur Specific [place] Urine Protein Urine Glucose (UA) Urine Ketones Urine Blood Urine Nitrite Urine Bilirubin Urine Urobilinogen Ur Leukocyte Esterase Urine RBC Urine WBC Urine WBC Clumps Ur Squamous Epith Cells Eros Biurate Crystals Calcium Carbonate Cryst Calcium Phosphate Cryst Calcium Oxalate Crystal Cystine Crystals Uric Acid Crystals Triple Phos Crystals Sulfur Crystals Cholesterol Crystals Tyrosine Crystals Hippuric Acid Crystals Amorphous Sediment Other Sediment Urine Bacteria Fatty Casts Hyaline Casts Fine Granular Casts Coarse Granular Casts Waxy Casts RBC Casts WBC Casts Other Casts Urine Starch Urine Mucus Urine Trichomonas Urine Yeast Urine Opiates Screen Ur Oxycodone Screen Urine Methadone Screen Ur Propoxyphene Screen Ur Barbiturates Screen U Tricyclic Antidepress Ur Phencyclidine Scrn Ur Amphetamines Screen U Methamphetamines Scrn U Benzodiazepines Scrn Urine Cocaine Screen U Marijuana (THC) Screen Ur Drug Screen Comment Blood Type Antibody Screen Crossmatch (AHG) 03/02/22 03/02/22 08:10 08:10 WBC RBC Hgb Hct MCV MCH MCHC RDW Coeff of Vinay Plt Count Neut % (Auto) Lymph % (Auto) [place] % (Auto) Eos % (Auto) Baso % (Auto) Neut # (Auto) Lymph # (Auto) [place] # (Auto) Eos # (Auto) Baso # (Auto) Abs Immat Gran (auto) Sodium Potassium Chloride Carbon Dioxide BUN Creatinine Estimated Creat Clear Estimated GFR Glucose Lactate 0.9 Calcium C-Reactive Protein Procalcitonin Urine Color Urine Appearance Urine pH Ur Specific [place] Urine Protein Urine Glucose (UA) Urine Ketones Urine Blood Urine Nitrite Urine Bilirubin Urine Urobilinogen Ur Leukocyte Esterase Urine RBC Urine WBC Urine WBC Clumps Ur Squamous Epith Cells [place] Biurate Crystals Calcium Carbonate Cryst Calcium Phosphate Cryst Calcium Oxalate Crystal Cystine Crystals Uric Acid Crystals Triple Phos Crystals Sulfur Crystals Cholesterol Crystals Tyrosine Crystals Hippuric Acid Crystals Amorphous Sediment Other Sediment Urine Bacteria Fatty Casts Hyaline Casts Fine Granular Casts Coarse Granular Casts Waxy Casts RBC Casts WBC Casts Other Casts Urine Starch Urine Mucus Urine Trichomonas Urine Yeast Urine Opiates Screen Ur Oxycodone Screen Urine Methadone Screen Ur Propoxyphene Screen Ur Barbiturates Screen U Tricyclic Antidepress Ur Phencyclidine Scrn Ur Amphetamines Screen U Methamphetamines Scrn U Benzodiazepines Scrn Urine Cocaine Screen U Marijuana (THC) Screen Ur Drug Screen Comment Blood Type O Positive Antibody Screen NEGATIVE Crossmatch (AHG) See Detail
--- NOTE | 2022-03-02 13:42 | PM.GSPN ---
Subjective Subjective Date Seen: 03/02/22 Interval history: Patient is not significantly changed. She had a fever yesterday to 102. She was also tachycardic during the fever. She states that her abdominal pain is not better or worse today. She has not passed gas. Exam Narrative: Exam Narrative: Abdomen: Soft, not distended, tender to palpation in epigastrium and left upper quadrant with only minimal tenderness to palpation in the right lower quadrant. This exam is similar to yesterday. Const: Vital Signs, click to edit/add: Vital Signs - 24 hr 03/01/22 13:58 03/01/22 14:37 03/01/22 15:30 Temperature 99.8 F H 99.8 F H 98.8 F Pulse Rate Pulse Rate [Apical ] 92 Respiratory Rate 18 Blood Pressure Blood Pressure [Ri ght Arm] 137/65 Pulse Oximetry 96 Oxygen Delivery Me thod Room Air 03/01/22 19:50 03/01/22 23:00 03/01/22 23:00 Temperature 98.9 F 98.2 F Pulse Rate Pulse Rate [Apical ] 89 103 H 103 H Respiratory Rate 16 16 16 Blood Pressure Blood Pressure [Ri ght Arm] 138/83 126/83 Pulse Oximetry 92 90 Oxygen Delivery Me thod Room Air Room Air 03/02/22 05:55 03/02/22 05:45 03/02/22 07:24 Temperature 100.7 F H 100.7 F H 102.0 F H Pulse Rate Pulse Rate [Apical ] 104 H Respiratory Rate 16 Blood Pressure Blood Pressure [Ri ght Arm] 116/67 Pulse Oximetry Oxygen Delivery Me thod 03/02/22 07:30 03/02/22 07:30 03/02/22 10:00 Temperature 102.0 F H 98.8 F Pulse Rate Pulse Rate [Apical ] 102 H 102 H Respiratory Rate 16 16 Blood Pressure Blood Pressure [Ri ght Arm] 129/57 L Pulse Oximetry 91 Oxygen Delivery Me thod Room Air 03/02/22 12:15 03/02/22 12:15 03/02/22 12:30 Temperature 97.8 F 97.8 F 98.2 F Pulse Rate 75 71 Pulse Rate [Apical ] 75 Respiratory Rate 16 16 16 Blood Pressure 118/74 115/68 Blood Pressure [Ri ght Arm] 118/74 Pulse Oximetry 93 93 91 Oxygen Delivery Me thod Room Air 03/02/22 13:15 Temperature 98 F Pulse Rate 76 Pulse Rate [Apical ] Respiratory Rate 16 Blood Pressure 118/70 Blood Pressure [Ri ght Arm] Pulse Oximetry 94 Oxygen Delivery Me thod Progress Note: A&P Assessment and plan (1) Abdominal pain: Status: Acute Plan 51-year-old female admitted to the hospital with fevers and abdominal pain of unknown etiology. I do not think this patient needs surgical intervention at this time. Patient's upper GI today showed no extravasation concerning for a contained perforation from her marginal ulcer. Patient's urine culture is still pending and so far there was no growth. Patient is on IV antibiotics although her white count remains normal. I discussed with the patient that it would be reasonable to wait for her urine culture results. We can advance her diet to clears however would wait for passing of gas to advance further.
[2022-03-02] MEDS: cefTRIAXone 1 GM in 0.9 % SODIUM CHLORIDE Mini-bag 100 ML IVPB (15:14)
[2022-03-02] MEDS: LACTATED RINGERS 1000 ML 1,000 ML 75 ML IV (18:45)
--- NOTE | 2022-03-02 18:49 | PC.NURSE ---
PATIENT HAD TEMP OF 102 AT BEGINNING OF SHIFT, ONE HOUR AFTER RECEIVING TYLENOL. FEVER EVENTUALLY DECREASED AND PATIENT HAS REMAINED AFEBRILE FOR REMAINDER OF SHIFT. OTHER VSS. PATIENT TOLERATING CLEAR LIQUID DIET THIS AFTERNOON WITH NO C/O N/V. LEFT FLANK PAIN CONTROLLED WITH DILAUDID. BOWEL SOUNDS ACTIVE AND PATIENT IS PASSING GAS.
[2022-03-03] VITALS (9 sets, daily range): BP systolic 118–140; BP diastolic 71–87; PULSE 73–83; RESP 12–16; TEMP 37–37.4; O2SAT 91–94
--- NOTE | 2022-03-03 00:28 | PC.NURSE ---
[id number]. VSS RA. C/o left flank pain 01/02 gave Dilaudid 0.5mg. Got pt up to walk to nurses station and back. Voiding medium kim urine
[2022-03-03] MEDS: HYDROmorphone 0.5 mg/0.5 ml inj IVP (03:45)
[2022-03-03] MEDS: ACETAMINOPHEN 325 MG TABLET 650 MG PO (03:52)
--- NOTE | 2022-03-03 07:08 | PC.NURSE ---
Shift Note 23-: Pt pleasant and cooperative, VSS, slight elevated temp throughout the night, see eMAR for medication administration. Pt tolerating clear liquid diet. Denies passing flatus or BM this shift.
[2022-03-03 07:22] LABS: Basophils Absolute Auto 0.03 K/uL (0.00-0.30); Basophils Percent Auto 0.4 % (0.0-3.0); Eosinophils Absolute Auto 0.16 K/uL (0.00-0.50); Hematocrit 25.8 % (33.0-51.0); Immature Granulocytes Abs Auto 0.07 K/uL (0.00-0.30); Lymphocytes Percent Auto 12.6 % (20-44); Mean Corpuscular HGB Conc 29 gm/dL (32-36); Mean Corpuscular Hemoglobin 21 pg (26-34); Mean Corpuscular Volume 73 fL (80-100); Monocytes Percent Auto 8.7 % (0.0-11.0); Neutrophils Percent Auto 75.4 % (42.0-72.0); Platelet Count* 293 K/uL (140-440); RDW Coefficient of Variation % 19.4 % (11.5-15.5); Red Blood Count 3.55 m/uL (4.00-5.20); White Blood Count* 8.08 K/uL (4.50-11.00)
[2022-03-03] MEDS: SUCRALFATE 1 GM TABLET PO ×2 (07:28→12:52)
[2022-03-03] MEDS: LEVOTHYROXINE 25 MCG TABLET PO (07:28)
[2022-03-03] MEDS: LACTATED RINGERS 1000 ML 1,000 ML 75 ML IV (07:29)
[2022-03-03 07:30] LABS: Hemoglobin* 7.5 gm/dL (12.0-16.0); Slide Review Reflex No
[2022-03-03 07:49] LABS: Chloride* 105 mmol/L (96-114); Potassium* 3.4 mmol/L (3.6-5.1); Sodium* 137 mmol/L (135-149)
[2022-03-03 08:01] LABS: Blood Urea Nitrogen* 10 mg/dL (7-30); Calcium* 8.1 mg/dL (8.4-10.6); Carbon Dioxide* 25 mmol/L (20-32); Creatinine* 0.7 mg/dL (0.5-1.5); Est. Creatinine Clearance* 81.18; Estimated Glomerular Filt Rate 104 ml/min; Glucose* 92 mg/dL (60-115)
--- NOTE | 2022-03-03 08:04 | PC.NURSE ---
NOTIFIED OF CRITICAL HGB VALUE OF 7.5. DR. MARTÍNEZ UPDATED.
[2022-03-03] MEDS: OMEPRAZOLE 20 MG CAPSULE DR 40 MG PO (08:40)
[2022-03-03] MEDS: ASCORBIC ACID 500 MG TABLET PO (08:40)
[2022-03-03] MEDS: HYDROCODONE-ACETAMIN 5-325 MG 1 TAB PO ×2 (08:40→12:51)
[2022-03-03] MEDS: GABAPENTIN 300 MG CAPSULE PO ×2 (08:40→12:51)
[2022-03-03] MEDS: VENLAFAXINE ER 75 MG CAPSULE PO (08:40)
[2022-03-03] MEDS: IRON SUCROSE COMPLEX 200 MG in 0.9 % SODIUM CHLORIDE 100 ml 100 ML 220 MG IVPB (09:07)
[2022-03-03] MEDS: cefTRIAXone 1 GM in 0.9 % SODIUM CHLORIDE Mini-bag 100 ML IVPB (14:25)
--- NOTE | 2022-03-03 14:46 | P.DS_ITS ---
DS: Providers Provider Date Seen: 03/03/22 Date of admission: 03/02/22 09:17 Primary care physician: Marisa Paul PA-C Admitting Clinician: Randall Montero MD Attending Physician on discharge: Randall Montero MD Date of Discharge: 03/03/22 DS: Diagnosis Discharge Diagnosis (1) Pyelonephritis: Status: Acute Problem details: This is the cause of her fever, left flank pain. Culture shows pansensitive E coli (2) Iron deficiency anemia: Status: Acute Problem details: Acute on chronic. 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 She received 1 unit of blood transfusion and 200 mg of Venofer. Recommend ongoing outpatient IV iron (3) Substance abuse: Status: Acute Problem details: Likely ongoing substance abuse. History of cocaine abuse. On admission urine had amphetamines/methamphetamines and THC (4) Gastric ulcer: Status: Acute Problem details: 12/13/2021-EGD location jejunal side of the anastomosis from previous gastric bypass; evaluated [facility] switched to Protonix 40 mg twice daily and Carafate. EGD in late January showed persistence of the ulcer. Referred to surgery for possible revision of Fracisco-en-Y surgery to help heal ulcer (5) History of gastric bypass: Status: Acute Problem details: with marginal ulcer. Upper GI x-ray today showed no extravasation of contrast. DS: Summary Hospital Course Hospital Course: 51-year-old female admitted to the hospital with fever and left flank pain. Time of admission it was suspected that she had pyelonephritis. She was treated with ceftriaxone and eventually her urine culture grew pansensitive E coli. She was switched to cephalexin. Her fever resolved. Her abdominal pain and flank pain got better. She had additional evaluation because of a persistent marginal ulcer. She has had recurrent problems with marginal ulcers at the anastomosis of her Fracisco-en-Y gastric bypass. Endoscopy in October 2021 showed an ulcer. Repeat 2 weeks ago also shoulder persistence of that ulcer. She has been referred to gastric bypass surgeon for another opinion. Consultation with Dr. Garcia, general surgeon. She had upper GI x-ray to evaluate for extravasation of contrast. None was seen. She has been able to take in p.o. food and fluids. At the time of discharge she reported feeling weak. Physical therapy evaluated her and felt she was fairly stable on her feet but she did find using a walker for support was quite helpful for her. Physical therapy provided her with a walker to assist with ambulation as she recovers from this illness Status at Discharge Functional status at discharge: uses cane/walker Overall status at discharge: patient is progressing back to baseline Time Spent with Patient Time attestation: Total time spent providing and/or coordinating discharge services: Time spent: Greater than 30 minutes Exam Narrative: Exam Narrative: She is tired but arouses to voice. Breathing is unlabored. Cardiovascular: S1, S2, regular rate and rhythm. Abdomen: Bowel sounds active. Abdomen is soft with mild left flank tenderness. No mass. No peritonitis. Extremities without edema. Const: Vital Signs, click to edit/add: Vital Signs - 24 hr 03/02/22 15:10 03/02/22 15:00 03/02/22 15:40 Temperature 98.4 F 98.1 F Pulse Rate 81 79 Pulse Rate [Apical ] 81 Respiratory Rate 16 16 16 Blood Pressure 114/95 H 118/87 Blood Pressure [Ri ght Arm] Pulse Oximetry 90 91 Oxygen Delivery Me thod 03/02/22 15:10 03/02/22 19:30 03/02/22 23:00 Temperature 98.4 F 98.6 F 99.0 F Pulse Rate Pulse Rate [Apical ] 81 87 82 Respiratory Rate 16 16 14 Blood Pressure Blood Pressure [Ri ght Arm] 114/95 H 126/70 113/62 Pulse Oximetry 90 94 91 Oxygen Delivery Me thod Room Air Room Air Room Air 03/02/22 23:00 03/03/22 03:52 03/03/22 03:00 Temperature 99.3 F 99.3 F Pulse Rate Pulse Rate [Apical ] 82 83 Respiratory Rate 14 12 Blood Pressure Blood Pressure [Ri ght Arm] 128/71 Pulse Oximetry 91 Oxygen Delivery Me thod Room Air 03/03/22 07:25 03/03/22 09:39 03/03/22 11:30 Temperature 99.0 F 99.3 F Pulse Rate Pulse Rate [Apical ] 82 82 76 Respiratory Rate 14 14 16 Blood Pressure Blood Pressure [Ri ght Arm] 137/71 140/75 H Pulse Oximetry 92 94 Oxygen Delivery Me thod Room Air Room Air 03/03/22 14:15 Temperature 99.0 F Pulse Rate Pulse Rate [Apical ] Respiratory Rate Blood Pressure Blood Pressure [Ri ght Arm] Pulse Oximetry Oxygen Delivery [place] thod Documenting provider has reviewed patient's vital signs: yes DS: Data Data Completed and Pending Labs on day of discharge: Labs from last 24 hours 03/03/22 03/03/22 03/02/22 06:16 06:16 08:10 WBC 8.08 RBC 3.55 L Hgb 7.5 L* Hct 25.8 L MCV 73 L MCH 21 L MCHC 29 L RDW Coeff of Vinay 19.4 H Plt Count 293 Neut % (Auto) 75.4 H Lymph % (Auto) 12.6 L [place] % (Auto) 8.7 Eos % (Auto) 2.0 Baso % (Auto) 0.4 Neut # (Auto) 6.10 Lymph # (Auto) 1.00 [place] # (Auto) 0.70 Eos # (Auto) 0.16 Baso # (Auto) 0.03 Abs Immat Gran (auto) 0.07 Sodium 137 Potassium 3.4 L Chloride 105 Carbon Dioxide 25 BUN 10 Creatinine 0.7 Estimated Creat Clear 81.18 Estimated GFR 104 Glucose 92 Calcium 8.1 L Fld PANCHO IgG LAURA Pending Crossmatch ([facility]) 03/02/22 08:10 WBC RBC Hgb Hct MCV MCH MCHC RDW Coeff of Vinay Plt Count Neut % (Auto) Lymph % (Auto) [place] % (Auto) Eos % (Auto) Baso % (Auto) Neut # (Auto) Lymph # (Auto) [place] # (Auto) Eos # (Auto) Baso # (Auto) Abs Immat Gran (auto) Sodium Potassium Chloride Carbon Dioxide BUN Creatinine Estimated Creat Clear Estimated GFR Glucose Calcium Fld PANCHO IgG LAURA Crossmatch ([facility]) See Detail Preliminary micro results at discharge 03/01/22 10:41 Blood Culture - Preliminary Blood NO GROWTH AFTER 48 HOURS 03/01/22 10:05 Blood Culture - Preliminary Blood NO GROWTH AFTER 48 HOURS Discharge Plan Discharge Disposition: Home, Self-Care Date of Admission: 03/02/22 09:17 Primary Care Provider: Marisa Paul Condition: Unchanged Anticipated Discharge Date/Time: 03/03/22 17:00 Discharge Medications: New cephalexin 500 mg capsule 500 mg PO TID Qty: 20 0RF Continued ferrous gluconate 325 mg (37 mg iron) tablet 324 mg PO QDAY hydroxyzine pamoate 25 mg capsule 25 mg PO HS PRN lorazepam 0.5 mg tablet 0.5 mg PO Q4H PRN Label Comments: TAKE 1 TO 2 TABLETS BY MOUTH EVERY 4 HOURS NEEDED FOR NAUSEA OR VOMITING sucralfate 1 gram tablet 1 g PO QID Label Comments: TAKE 1 TABLET BY MOUTH FOUR TIMES DAILY levothyroxine 25 mcg capsule 25 mcg PO QDAY ascorbic acid (vitamin C) 500 mg tablet 500 mg PO QDAY pantoprazole [Protonix] 40 mg tablet,delayed release (DR/EC) 40 mg PO BID Qty: 180 1RF cyanocobalamin (vitamin B-12) 1,000 mcg/mL solution 1,000 mcg IM ONCE Qty: 10 4RF Rx Instructions: Once monthly for vitamin B12 deficiency gabapentin 300 mg capsule 300 mg PO QID Qty: 90 3RF venlafaxine 75 mg capsule,extended release 24hr 75 mg PO DAILY Qty: 90 3RF hydrocodone-acetaminophen 5-325 mg tablet 1 tab PO Q4-6H PRN (Reason: pain) Qty: 20 0RF Rx Instructions: For severe finger pain Discharge Orders: Discharge Order (Routine); Ordered 03/03/22 Ordered By: Randall Montero Activity Restrictions/Additional Instructions: Use the walker as needed. See your health care provider next week for recheck. I recommend you continue intravenous iron treatment for your anemia. Follow-up with your surgeon about your ulcer. Activity Level: Activity as Tolerated and Use Walker Discharge Diet: Regular Follow Up Appointments: Marisa Paul PA-C [Primary Care Provider] - 03/10/22 11:15 am Forms: [email or web address] Info Instructions
--- NOTE | 2022-03-03 16:32 | P.GSPN_ITS ---
Subjective Subjective Date Seen: 03/03/22 Interval history: Patient is doing better today. She states that her abdominal pain is slightly better. She tolerated some clears but is not passing gas. She is ambulating. Exam Narrative: Exam Narrative: Abdomen: Soft, not distended, cutting machine tender helper to palpation in epigastrium and left upper quadrant with most tenderness located in the left upper quadrant. This is improved from yesterday. Also, the tenderness in the rest of the abdomen has resolved. Const: Vital Signs, click to edit/add: Vital Signs - 24 hr 03/02/22 19:30 03/02/22 23:00 03/02/22 23:00 Temperature 98.6 F 99.0 F Pulse Rate Pulse Rate [Apical ] 87 82 82 Respiratory Rate 16 14 14 Blood Pressure Blood Pressure [Ri ght Arm] 126/70 113/62 Pulse Oximetry 94 91 Oxygen Delivery Me thod Room Air Room Air 03/03/22 03:52 03/03/22 03:00 03/03/22 07:25 Temperature 99.3 F 99.3 F 99.0 F Pulse Rate Pulse Rate [Apical ] 83 82 Respiratory Rate 12 14 Blood Pressure Blood Pressure [Ri ght Arm] 128/71 137/71 Pulse Oximetry 91 92 Oxygen Delivery Me thod Room Air Room Air 03/03/22 09:39 03/03/22 11:30 03/03/22 14:15 Temperature 99.3 F 99.0 F Pulse Rate Pulse Rate [Apical ] 82 76 Respiratory Rate 14 16 Blood Pressure Blood Pressure [Ri ght Arm] 140/75 H Pulse Oximetry 94 Oxygen Delivery Me thod Room Air 03/03/22 14:53 03/03/22 16:12 03/03/22 16:13 Temperature 99.0 F 98.6 F Pulse Rate 79 Pulse Rate [Apical ] 73 73 Respiratory Rate 16 16 16 Blood Pressure 118/87 Blood Pressure [Ri ght Arm] 132/75 Pulse Oximetry 94 Oxygen Delivery Me thod Room Air Progress Note: A&P Assessment and plan (1) Pyelonephritis: Problem details: 51-year-old female admitted to the hospital with fevers and abdominal pain that is most likely due to pyelonephritis. I discussed with the patient that her symptoms are getting better on IV antibiotics. Her urine culture grew E coli. I think pyelonephritis is the most likely cause for her abdominal pain in fevers. Patient can advance the diet as tolerated. Status: Acute
--- NOTE | 2022-03-03 18:10 | PC.NURSE ---
discharge. Pt has been pleasant and cooperative, she is tired and sleepy. VSS, no temp. Pt tolerating clear liquid diet. She is passing flatus, no BM this shift. IV is patent, SL was d/c intact. no increase in abd pain after clears. abd pain 6-8/10 and she is getting po norco. went over discharge grocery packer with pt. went over medications, appointments, instructions and educations. she went over and signed personal belonging sheet. she got a w/c ride to her car and was helped in to her car.
[2022-03-05 03:41] LABS: Anti-Nuclear Ab(ANA)IgG ELISA Detected (None Detected)
[2022-03-07 02:41] LABS: ANA Pattern Centromere; ANA Titer >1:2560; Antinuclear AntibodyHEp-2 Detected (<1:80)
== END 2022-03-03 17:35 | disposition home or self-care (01) | DRG 689 ==
LOC: ED 12:35 → MEDSURG 12:44
PROVIDERS: Admitting Provider Family Medicine; Emergency Provider Family Medicine; PCP Physician Assistant Medical; Visit Provider Family Medicine
DX: N10 Acute pyelonephritis (principal); K28.0 Acute gastrojejunal ulcer with hemorrhage; K91.2 Postsurgical malabsorption, not elsewhere classified; K95.89 Other complications of other bariatric procedure; D62 Acute posthemorrhagic anemia; B96.20 Unspecified Escherichia coli [E. coli] as the cause of diseases classified elsewhere; D50.9 Iron deficiency anemia, unspecified; Z98.84 Bariatric surgery status; Z86.73 Personal history of transient ischemic attack (TIA), and cerebral infarction without residual deficits; M06.9 Rheumatoid arthritis, unspecified; I73.00 Raynaud's syndrome without gangrene; M34.9 Systemic sclerosis, unspecified; F15.10 Other stimulant abuse, uncomplicated; F12.10 Cannabis abuse, uncomplicated; F14.11 Cocaine abuse, in remission
CPT/HCPCS: 36415; 36430; 71045; 74176; 74240; 80048; 80053; 80306; 81001; 81003; 81015; 83605; 84145; 85025; 86039; 86140; 86850; 86900; 86901; 86922; 87040; 87086; 87186; 87635; 97110; 97116; 97161; 99284; 99285; A9270; G0378; J0696; J1170; J1756; J2270; J2405; J7030; J7120; P9016

== ENCOUNTER 2022-03-10 12:12 | Outpatient (CLI) | payer OTHER, SELFPAY ==
[2022-03-10 22:10] LABS: Iron* 43 ug/dL (37-170)
[2022-03-10 22:11] LABS: Chloride* 106 mmol/L (96-114)
[2022-03-10 22:12] LABS: Sodium* 138 mmol/L (135-149)
[2022-03-10 22:13] LABS: Potassium* 4.5 mmol/L (3.6-5.1)
[2022-03-10 22:15] LABS: Carbon Dioxide* 21 mmol/L (20-32); Cholesterol* 91 mg/dL (90-199); Creatinine* 0.7 mg/dL (0.5-1.5); Estimated Glomerular Filt Rate 104 ml/min
[2022-03-10 22:16] LABS: Alanine Aminotransferase* 19 U/L (4-35); Alkaline Phosphatase* 168 U/L (40-150); Aspartate Amino Transferase* 40 U/L (12-35); Bilirubin Total* 0.5 mg/dL (0.1-1.5); Blood Urea Nitrogen* 15 mg/dL (7-30); Calcium* 8.7 mg/dL (8.4-10.6); Glucose* 86 mg/dL (60-115); HDL Cholesterol* 51 mg/dL (>=50); LDL Cholesterol Calculated 27 mg/dL (<100); Total Protein* 8.3 g/dL (6.0-8.3); Triglycerides* 65 mg/dL (40-149)
[2022-03-10 22:20] LABS: Percent Iron Saturation 9 % (20-50); Total Iron Binding Capacity 471 ug/dL (265-497)
[2022-03-10 23:01] LABS: Vitamin B12* 984 pg/mL (243-894)
== END 2022-03-10 12:13 | disposition home or self-care (01) ==
PROVIDERS: PCP Physician Assistant Medical; Visit Provider Physician Assistant Medical
DX: Z00.00 Encounter for general adult medical examination without abnormal findings (principal); D50.9 Iron deficiency anemia, unspecified; M79.604 Pain in right leg; M79.605 Pain in left leg; E07.9 Disorder of thyroid, unspecified; R79.89 Other specified abnormal findings of blood chemistry
CPT/HCPCS: 80053; 80061; 82607; 83516; 83540; 83550

== ENCOUNTER 2022-05-26 14:10 | Outpatient (CLI) | payer OTHER, BC, SELFPAY ==
[2022-05-26 23:45] LABS: Free T4 Free Thyroxine* 1.33 ng/dL (0.70-1.85)
== END 2022-05-26 14:11 | disposition home or self-care (01) ==
PROVIDERS: PCP Physician Assistant Medical; Visit Provider Physician Assistant Medical
DX: Z01.818 Encounter for other preprocedural examination (principal); E87.6 Hypokalemia; D64.9 Anemia, unspecified; I10 Essential (primary) hypertension
CPT/HCPCS: 83735; 84439; 84443

== ENCOUNTER 2022-06-22 16:32 | Emergency (ER) | payer OTHER, BC, SELFPAY ==
[2022-06-22] VITALS (7 sets, daily range): BP systolic 159–183; BP diastolic 102–117; PULSE 86–108; RESP 18; TEMP 36.7; O2SAT 95–99; BMI 18.9
[2022-06-22 17:48] LABS: PCR FLU A Negative PCR FLU A (Negative); PCR FLU B Negative PCR FLU B (Negative); PCR RSV Negative PCR RSV (Negative); SARS PCR* Negative SARS-CoV-2 (Negative)
--- NOTE | 2022-06-22 19:05 | ED.GENADULT ---
HPI - General Adult General Chief complaint: Nausea/Vomiting Stated complaint: Short of Breath Dizzy Vomiting Abdominal Pain Time Seen by Provider: 06/22/22 18:35 History of Present Illness HPI narrative: 52-year-old woman presenting to the emergency department with concern of abdominal pain. She describes a burning intense pain in her epigastrium. She says she has had GI bleeds in the past and sounds like she is worried about that here. She has taken a lot of Tums much more than usual without relief.. Did take a Zofran this afternoon that she did not feel was particularly helpful. Did start vomiting intermittently on about 3 days ago. Had 2 bowel movements today 1 of which was looser. Has not otherwise had diarrhea. Stools have not been dark. She has not had a fever. She also says that her blood pressures have been quite high. Notes she can take ketorolac to rash -- I see throat swelling listed in record in certainly given history of GI bleed can take oral NSAIDs. Otherwise recently had surgery on her right hand. Sutures are visible there and the wrist without inflammatory changes. Sounds like some surgery to release scarring. History of rheumatoid arthritis and scleroderma. Related Data Home Medications Medication Instructions Recorded Confirmed ascorbic acid (vitamin C) 500 mg 500 mg PO QDAY 12/28/21 05/26/22 tablet ferrous gluconate 325 mg (37 mg 324 mg PO QDAY 01/26/22 05/26/22 iron) tablet sucralfate 1 gram tablet 1 g PO QID 03/01/22 05/26/22 Previous Rx's Medication Instructions Recorded pantoprazole 40 mg tablet,delayed 40 mg PO BID #180 tabs 01/27/22 release (Protonix) cyanocobalamin (vitamin B-12) 1,000 mcg IM ONCE #10 mL 02/03/22 1,000 mcg/mL injection solution hydrocodone 5 mg-acetaminophen 325 1 tab PO Q4-6H PRN pain #20 tabs 02/24/22 mg tablet venlafaxine 75 mg capsule,extended 75 mg PO DAILY #90 caps 02/24/22 release 24 hr levothyroxine 25 mcg tablet 25 mcg PO QDAY #90 tabs 03/16/22 potassium chloride 10 mEq 20 - 40 meq PO QDAY #18 tabs 05/26/22 tablet,extended release Allergies Allergy/AdvReac Type Severity Reaction Status Date / Time benzonatate Allergy Unknown Rash Verified 05/26/22 13:44 NSAIDS (Non-Steroidal AdvReac Verified 05/26/22 13:44 Anti-Inflamma Ketorolac tromethamine Allergy Unknown Throat Uncoded 05/26/22 13:44 swelling Review of Systems Status of ROS: Reports: 6 or more systems reviewed and unremarkable except as noted in History and below [facility] Medical History Anxiety Asthma B12 deficiency Complications of gastric bypass surgery Elevated liver function tests Flexor tenosynovitis of thumb Gastric ulcer Gastroesophageal reflux disease History of blood transfusion History of cerebrovascular accident History of cocaine abuse History of depression History of gastric ulcer History of gastrostomy tube placement History of panic attacks History of primary hypertension Hypokalemia Iron deficiency anemia Marginal ulcer Pyelonephritis Raynaud's disease Rheumatoid arthritis Scleroderma Substance abuse Systemic sclerosis Thyroid disease Tobacco dependence syndrome Uninsured (~02/2022) Upper gastrointestinal hemorrhage Vitamin D deficiency Surgical History H/O gastric bypass History of appendectomy History of arthroscopic knee surgery History of cholecystectomy History of gastric bypass History of hysterectomy with oophorectomy History of surgery on right wrist Family History Father Alcohol abuse Colon cancer High blood pressure Sister Alcohol abuse Bipolar disorder Breast cancer Endometrial cancer Depression Hepatitis Ulcerative colitis Colon cancer Ovarian cancer Mother Anxiety disorder Bipolar disorder Heart disease Parkinsonism Colon cancer Maternal Grandmother Asthma Rheumatoid arthritis Daughter Attention deficit hyperactivity disorder (ADHD) Uncle Kidney disease Aunt Kidney disease Paternal Grandfather Rheumatoid arthritis Other Malignant melanoma Social History Narrative: She lives in [facility] with friend and her 12-year-old daughter. She has a significant other, Fausto Delgado, who lives in [place]. She indicates he would be healthcare power of attorney general. Her code status is full. , 3 children, Currently works at an office job. Smoking Status: Former smoker Do you use any of these nicotine containing products: None Second hand tobacco smoke exposure: Yes How often do you have a drink containing alcohol: never How often do you have six or more drinks on one occasion: Never AUDIT-C Alcohol total score: 0 Non-prescribed substance use: denies use service: No Exam Narrative: Exam Narrative: Slim. Seems rather uncomfortable. Oropharynx sticky. A few spots of less than a mm whitish-soto in plaquing on the palate. She is edentulous. Hyperemic oropharynx. Begins breathing more heavily during exam. Lungs are clear. Cardiovascular in a regular rhythm with elevated rate. Abdomen is soft. Residual skin from weight loss. Quite tender to palpation epigastrium. Mildly so elsewhere. No peritoneal signs. Normoactive bowel sounds. Extremities are well-perfused. 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 Noninflamed surgical wounds on right hand and wrist. Sutures in place. Const: Vital Signs, click to edit/add: Vital Signs - 24 hr 06/22/22 18:25 06/22/22 18:00 06/22/22 21:00 Temperature 98.0 F Pulse Rate [Pulse Oximeter] 97 97 Respiratory Rate 18 Blood Pressure [Le ft Upper Arm] 175/107 H 175/107 H Pulse Oximetry 99 99 97 Oxygen Delivery Me thod Room Air Room Air 06/22/22 18:52 06/22/22 20:00 06/22/22 21:00 Temperature Pulse Rate [Pulse Oximeter] 86 108 H Respiratory Rate Blood Pressure [Le ft Upper Arm] 159/102 H 183/117 H Pulse Oximetry 97 98 96 Oxygen Delivery Me thod Room Air 06/22/22 20:30 06/22/22 21:30 Temperature Pulse Rate [Pulse Oximeter] 90 99 Respiratory Rate Blood Pressure [Le ft Upper Arm] 160/103 H 173/107 H Pulse Oximetry 96 95 Oxygen Delivery Me thod Room Air Documenting provider has reviewed patient's vital signs: yes Course Vital Signs Vital signs: Initial Vital Signs Temperature 98.0 F 06/22/22 18:00 Temperature Source Temporal Artery Scan 06/22/22 18:00 Pulse Rate 97 06/22/22 18:00 Pulse Rhythm 06/22/22 18:00 Respiratory Rate 18 06/22/22 18:00 Blood Pressure 175/107 H 06/22/22 18:00 Blood Pressure Mean 129 06/22/22 18:00 Blood Pressure Position Supine 06/22/22 18:00 Pulse Oximetry 99 06/22/22 18:00 Oxygen Delivery Method 06/22/22 18:00 Vital Signs Temperature 98.0 F 06/22/22 18:00 Pulse Rate 97 06/22/22 18:00 Respiratory Rate 18 06/22/22 18:00 Blood Pressure 175/107 H 06/22/22 18:00 Pulse Oximetry 99 06/22/22 18:00 Oxygen Delivery Method 06/22/22 18:00 Temperature 98.0 F 06/22/22 18:00 Pulse Rate 99 06/22/22 21:30 Respiratory Rate 18 06/22/22 18:00 Blood Pressure 173/107 H 06/22/22 21:30 Pulse Oximetry 95 06/22/22 21:30 Oxygen Delivery Method 06/22/22 20:30 Medical Decision Making MDM Narrative Medical decision making narrative: I am notified later that Ms. Sanabria is still complaining of pain and was sleeve. I was reviewing lab results intending to talk with her about them at the time. She is accusing me of thinking that she is seeking drugs maintaining that she has had been sober since February; that I sat down and said ?so what brings you into the ER?. Unfortunately it triage note was not yet available so I needed to initiate inquiry. I explained this to her and I expressed that I believe I can understand why historically she might feel that way. She appears to feel better in this regard but also maintains that her epigastrium still hurts and that she is concerned GI bleed and is tired of living in constant pain. We discussed potential options and settle on ketamine infusion. She had declined diphenhydramine and Reglan noting they make her feel uncomfortable. Also with nursing present do to check stool guaiac and indeed is positive for blood. Has improved a good deal with ketamine infusion; though still uncomfortable. I do offer discussion of further treatment or evaluation that she thinks might be helpful. She is clearly disappointed but quietly and calmly says that she anticipates following up with her primary and that S[place]an just needs to figure this out and that she is calling for her ride. I remind that hemoglobin dropped. I emphasized need for follow-up than 48 hours for recheck. Lab Data Lab results reviewed: Yes I reviewed the patient's lab results Labs: Lab Results 06/22/22 06/22/22 06/22/22 Range/Units 17:06 18:56 19:08 WBC (4.50-11.00) K/uL RBC (4.00-5.20) m/uL Hgb (12.0-16.0) gm/dL Hct (33.0-51.0) % MCV (80-100) fL MCH (26-34) pg MCHC (32-36) gm/dL RDW Coeff of Vinay (11.5-15.5) % Plt Count (140-440) K/uL Neut % (Auto) (42.0-72.0) % Lymph % (Auto) (20-44) % Aiken % (Auto) (0.0-11.0) % Eos % (Auto) (0.0-7.0) % Baso % (Auto) (0.0-3.0) % Neut # (Auto) (1.7-7.0) K/uL Lymph # (Auto) (0.90-2.90) K/uL Aiken # (Auto) (0.00-0.90) K/UL Eos # (Auto) (0.00-0.50) K/uL Baso # (Auto) (0.00-0.30) K/uL Diff Slide Review (Acceptable) Sodium (135-149) mmol/L Potassium (3.6-5.1) mmol/L Chloride (96-114) mmol/L Carbon Dioxide (20-32) mmol/L BUN (7-30) mg/dL Creatinine (0.5-1.5) mg/dL Estimated Creat Clear Estimated GFR ml/min Glucose (60-115) mg/dL Calcium (8.4-10.6) mg/dL Total Bilirubin (0.1-1.5) mg/dL Direct Bilirubin (0.0-0.5) mg/dL AST (12-35) U/L ALT (4-35) U/L Alkaline Phosphatase (40-150) U/L C-Reactive Protein (0.5-1.0) mg/dL Total Protein (6.0-8.3) g/dL Albumin (3.3-5.0) g/dL Lipase (23-300) U/L Urine Color Yellow (Yellow) Urine Appearance Cloudy A (Clear) Urine pH 7.0 (5.0-8.5) Ur Specific Lovell 1.020 (1.000-1.030) Urine Protein 1+ A (Negative) Urine Glucose (UA) Negative (Negative) Urine Ketones Negative (Negative) Urine Blood Trace-intact A (Negative) Urine Nitrite Negative (Negative) Urine Bilirubin Negative (Negative) Urine Urobilinogen 0.2 (0.2-1.0) Ur Leukocyte Esterase 1+ A (Negative) Urine RBC 2-5 A (0-2) Urine WBC 0-2 (0-5) Ur Squamous Epith Cells Moderate A (None-Few) Urine Bacteria Few A (None) Fine Granular Casts Few A (None) Urine Opiates Screen Negative (Negative) Ur Oxycodone Screen Negative (Negative) Urine Methadone Screen Negative (Negative) Ur Propoxyphene Screen Negative (Negative) Ur Barbiturates Screen Negative (Negative) U Tricyclic Antidepress Negative (Negative) Ur Phencyclidine Scrn Negative (Negative) Ur Amphetamines Screen Negative (Negative) U Methamphetamines Scrn Negative (Negative) U Benzodiazepines Scrn Negative (Negative) Urine Cocaine Screen Negative (Negative) U Marijuana (THC) Screen POSITIVE A* (Negative) Ur Drug Screen Comment See Note Ethyl Alcohol (0.01-0.03) % SARS-CoV-2 (PCR) Negative SARS-CoV-2 (Negative) Influenza Type A (PCR) Negative PCR FLU A (Negative) Influenza Type B (PCR) Negative PCR FLU B (Negative) RSV (PCR) Negative PCR RSV (Negative) 06/22/22 06/22/22 06/22/22 Range/Units 19:20 19:20 19:20 WBC 5.67 (4.50-11.00) K/uL RBC 3.32 L (4.00-5.20) m/uL Hgb 8.0 L (12.0-16.0) gm/dL Hct 26.8 L (33.0-51.0) % MCV 81 (80-100) fL MCH 24 L (26-34) pg MCHC 30 L (32-36) gm/dL RDW Coeff of Vinay 18.5 H (11.5-15.5) % Plt Count 205 (140-440) K/uL Neut % (Auto) 70.7 (42.0-72.0) % Lymph % (Auto) 19.4 L (20-44) % Aiken % (Auto) 6.9 (0.0-11.0) % Eos % (Auto) 2.3 (0.0-7.0) % Baso % (Auto) 0.5 (0.0-3.0) % Neut # (Auto) 4.01 (1.7-7.0) K/uL Lymph # (Auto) 1.10 (0.90-2.90) K/uL Aiken # (Auto) 0.40 (0.00-0.90) K/UL Eos # (Auto) 0.13 (0.00-0.50) K/uL Baso # (Auto) 0.03 (0.00-0.30) K/uL Diff Slide Review Acceptable Review (Acceptable) Sodium 137 (135-149) mmol/L Potassium 3.3 L (3.6-5.1) mmol/L Chloride 102 (96-114) mmol/L Carbon Dioxide 29 (20-32) mmol/L BUN 17 (7-30) mg/dL Creatinine 1.0 (0.5-1.5) mg/dL Estimated Creat Clear 51.25 Estimated GFR 67 ml/min Glucose 92 (60-115) mg/dL Calcium 8.7 (8.4-10.6) mg/dL Total Bilirubin 0.5 (0.1-1.5) mg/dL Direct Bilirubin 0.2 (0.0-0.5) mg/dL AST 34 (12-35) U/L ALT 24 (4-35) U/L Alkaline Phosphatase 154 H (40-150) U/L C-Reactive Protein 0.5 (0.5-1.0) mg/dL Total Protein 7.5 (6.0-8.3) g/dL Albumin 3.9 (3.3-5.0) g/dL Lipase 159 (23-300) U/L Urine Color (Yellow) Urine Appearance (Clear) Urine pH (5.0-8.5) Ur Specific Lovell (1.000-1.030) Urine Protein (Negative) Urine Glucose (UA) (Negative) Urine Ketones (Negative) Urine Blood (Negative) Urine Nitrite (Negative) Urine Bilirubin (Negative) Urine Urobilinogen (0.2-1.0) Ur Leukocyte Esterase (Negative) Urine RBC (0-2) Urine WBC (0-5) Ur Squamous Epith Cells (None-Few) Urine Bacteria (None) Fine Granular Casts (None) Urine Opiates Screen (Negative) Ur Oxycodone Screen (Negative) Urine Methadone Screen (Negative) Ur Propoxyphene Screen (Negative) Ur Barbiturates Screen (Negative) U Tricyclic Antidepress (Negative) Ur Phencyclidine Scrn (Negative) Ur Amphetamines Screen (Negative) U Methamphetamines Scrn (Negative) U Benzodiazepines Scrn (Negative) Urine Cocaine Screen (Negative) U Marijuana (THC) Screen (Negative) Ur Drug Screen Comment Ethyl Alcohol < 0.01 L (0.01-0.03) % SARS-CoV-2 (PCR) (Negative) Influenza Type A (PCR) (Negative) Influenza Type B (PCR) (Negative) RSV (PCR) (Negative) Discharge Plan Discharge Clinical Impression: GI bleed, Epigastric pain, Vomiting, Anemia Patient Disposition: Home w/ Parent or Adult Condition: Stable Additional Instructions: Focus on hydration. Zofran as needed. Continue to take her sucralfate. I would follow up within 48 hours to recheck your hemoglobin and hematocrit. Please contact your primary care provider. Return for marked increase in/uncontrolled pain, intractable vomiting, worsening lightheadedness cough shortness of breath. Prescriptions: No Action ferrous gluconate 325 mg (37 mg iron) tablet 324 mg PO QDAY potassium chloride 10 mEq tablet extended release 20 - 40 meq PO QDAY Qty: 18 0RF Rx Instructions: take 2 tablets once, then repeat in 2 hours repeat same dosing in the morning 05/27/22; then go to 2 tablets once daily (total of 40mg tonight and 40mg tomorrow morning) sucralfate 1 gram tablet 1 g PO QID Label Comments: TAKE 1 TABLET BY MOUTH FOUR TIMES DAILY ascorbic acid (vitamin C) 500 mg tablet 500 mg PO QDAY pantoprazole [Protonix] 40 mg tablet,delayed release (DR/EC) 40 mg PO BID Qty: 180 1RF cyanocobalamin (vitamin B-12) 1,000 mcg/mL solution 1,000 mcg IM ONCE Qty: 10 4RF Rx Instructions: Once monthly for vitamin B12 deficiency venlafaxine 75 mg capsule,extended release 24hr 75 mg PO DAILY Qty: 90 3RF hydrocodone-acetaminophen 5-325 mg tablet 1 tab PO Q4-6H PRN (Reason: pain) Qty: 20 0RF Rx Instructions: For severe finger pain levothyroxine 25 mcg tablet 25 mcg PO QDAY Qty: 90 3RF Rx Instructions: Take 1 tablet daily Follow Up/Referrals: Marisa Paul PA-C [Primary Care Provider] - Stand Alone Forms: [facility] Info Instructions
[2022-06-22] MEDS: 0.9 % SODIUM CHLORIDE 1000 ml 1,000 ML IV (19:23)
[2022-06-22 19:32] LABS: Basophils Absolute Auto 0.03 K/uL (0.00-0.30); Basophils Percent Auto 0.5 % (0.0-3.0); Eosinophils Absolute Auto 0.13 K/uL (0.00-0.50); Eosinophils Percent Auto 2.3 % (0.0-7.0); Hematocrit 26.8 % (33.0-51.0); Immature Granulocytes Abs Auto 0.01 K/uL (0.00-0.30); Immature Granulocytes Pct Auto 0.2 %; Lymphocytes Percent Auto 19.4 % (20-44); Mean Corpuscular HGB Conc 30 gm/dL (32-36); Mean Corpuscular Hemoglobin 24 pg (26-34); Mean Corpuscular Volume 81 fL (80-100); Monocytes Percent Auto 6.9 % (0.0-11.0); Neutrophils Absolute Auto 4.01 K/uL (1.7-7.0); Neutrophils Percent Auto 70.7 % (42.0-72.0); Platelet Count* 205 K/uL (140-440); RDW Coefficient of Variation % 18.5 % (11.5-15.5); Red Blood Count 3.32 m/uL (4.00-5.20); White Blood Count* 5.67 K/uL (4.50-11.00)
[2022-06-22] MEDS: GI COCKTAIL (VISC LIDO/ANTACID) 30 ML PO (19:35)
[2022-06-22 19:39] LABS: Slide Review Reflex Yes
[2022-06-22] MEDS: ONDANSETRON 2 MG/ML inj 4 MG IVP (19:39)
[2022-06-22 19:45] LABS: Chloride* 102 mmol/L (96-114); Sodium* 137 mmol/L (135-149)
[2022-06-22 19:46] LABS: Potassium* 3.3 mmol/L (3.6-5.1)
[2022-06-22 19:47] LABS: Albumin* 3.9 g/dL (3.3-5.0)
[2022-06-22 19:48] LABS: Est. Creatinine Clearance* 51.25; Estimated Glomerular Filt Rate 67 ml/min
[2022-06-22 19:49] LABS: Blood Urea Nitrogen* 17 mg/dL (7-30); Calcium* 8.7 mg/dL (8.4-10.6); Carbon Dioxide* 29 mmol/L (20-32); Glucose* 92 mg/dL (60-115)
[2022-06-22 19:50] LABS: Total Protein* 7.5 g/dL (6.0-8.3)
[2022-06-22 19:51] LABS: Alanine Aminotransferase* 24 U/L (4-35); Alkaline Phosphatase* 154 U/L (40-150); Aspartate Amino Transferase* 34 U/L (12-35); Bilirubin Direct* 0.2 mg/dL (0.0-0.5); Bilirubin Total* 0.5 mg/dL (0.1-1.5); Lipase* 159 U/L (23-300)
[2022-06-22 19:52] LABS: C Reactive Protein* 0.5 mg/dL (0.5-1.0)
[2022-06-22 19:54] LABS: Ethanol* < 0.01 % (0.01-0.03)
[2022-06-22 19:58] LABS: Appearance Urine Cloudy (Clear); Bilirubin Urine Negative (Negative); Blood Urine Trace-intact (Negative); Color Urine Yellow (Yellow); Glucose Urine Negative (Negative); Ketones Urine Negative (Negative); Leukocyte Esterase Urine 1+ (Negative); Nitrite Urine Negative (Negative); Protein Urine 1+ (Negative); Urobilinogen Urine 0.2 (0.2-1.0)
[2022-06-22 20:01] LABS: Slide Review Acceptable Review (Acceptable)
[2022-06-22 20:06] LABS: Bacteria Urine Few; Squamous Epithelial Cell Urine Moderate (None-Few); WBC Urine 0-2 (0-5)
[2022-06-22 20:07] LABS: Fine Granular Casts Urine Few
[2022-06-22 20:28] LABS: Amphetamine Screen Urine Negative (Negative); Barbiturate Screen Urine Negative (Negative); Benzodiazepines Screen Urine Negative (Negative); Cocaine Screen Urine Negative (Negative); Methadone Screen Urine Negative (Negative); Methamphetamines Screen Urine Negative (Negative); Opiate Screen Urine Negative (Negative); Oxycodone Screen Urine Negative (Negative); Phencyclidine Screen Urine Negative (Negative); Tricyclic Antidepressant Urine Negative (Negative)
[2022-06-22 20:29] LABS: Cannabinoid Screen Urine POSITIVE (Negative)
[2022-06-22] MEDS: KETAMINE HCL 20 MG in 0.9 % SODIUM CHLORIDE 100 ml 100 ML 300.6 MG IVPB (20:56)
--- NOTE | 2022-06-22 21:37 | ED.NURSE ---
pain was helped by the ketamine drip-pain 10/03. is able to rest better now.
== END 2022-06-22 22:10 | disposition home or self-care (01) ==
PROVIDERS: Emergency Provider Family Medicine; PCP Physician Assistant Medical
DX: K92.2 Gastrointestinal hemorrhage, unspecified (principal); R10.13 Epigastric pain; R11.10 Vomiting, unspecified; D64.9 Anemia, unspecified
CPT/HCPCS: 36415; 80048; 80076; 80306; 81001; 82077; 83690; 85025; 86140; 87086; 87502; 87634; 87635; 94761; 96361; 96374; 96375; 99284; A9270; J1200; J2405; J3490; J7030

== ENCOUNTER 2022-06-27 14:02 | Emergency (ER) | payer BC, SELFPAY ==
[2022-06-27] VITALS (33 sets, daily range): BP systolic 165–191; BP diastolic 95–118; PULSE 86–102; RESP 24; TEMP 36.4; O2SAT 85–99; BMI 18.5
--- NOTE | 2022-06-27 14:54 | ED_ITS ---
HPI - General Adult General Chief complaint: Chest Pain Stated complaint: Chest pain Time Seen by Provider: 06/27/22 14:21 History of Present Illness HPI narrative: This 52-year-old female comes in reporting upper epigastric pain radiating up into her chest. She has a history of GI bleed that occurred about 4 months ago. She did not have a endoscopy evaluation at that time. She was admitted to the hospital here and then transferred to [facility] because she has a remote history of bariatric surgery that occurred about 14 years ago. She feels that she is bleeding again and does report episodes of lightheadedness and shortness of breath. She was seen in the emergency department here about 5 days ago and was noted to have a hemoglobin of 8.0. Her guaiac test also was positive. She states that she has had some emesis with some bright red blood. She reports some chest discomfort that seems to be decreased when laying still but worse with exertion and activity. She has a history of scleroderma and Raynaud's phenomenon and had a surgery to her right hand to improve circulation. Related Data Home Medications Medication Instructions Recorded Confirmed ascorbic acid (vitamin C) 500 mg 500 mg PO QDAY 12/28/21 05/26/22 tablet ferrous gluconate 325 mg (37 mg 324 mg PO QDAY 01/26/22 05/26/22 iron) tablet sucralfate 1 gram tablet 1 g PO QID 03/01/22 05/26/22 Previous Rx's Medication Instructions Recorded pantoprazole 40 mg tablet,delayed 40 mg PO BID #180 tabs 01/27/22 release (Protonix) cyanocobalamin (vitamin B-12) 1,000 mcg IM ONCE #10 mL 02/03/22 1,000 mcg/mL injection solution hydrocodone 5 mg-acetaminophen 325 1 tab PO Q4-6H PRN pain #20 tabs 02/24/22 mg tablet venlafaxine 75 mg capsule,extended 75 mg PO DAILY #90 caps 02/24/22 release 24 hr levothyroxine 25 mcg tablet 25 mcg PO QDAY #90 tabs 03/16/22 potassium chloride 10 mEq 20 - 40 meq PO QDAY #18 tabs 05/26/22 tablet,extended release Allergies Allergy/AdvReac Type Severity Reaction Status Date / Time benzonatate Allergy Unknown Rash Verified 05/26/22 13:44 NSAIDS (Non-Steroidal AdvReac Verified 05/26/22 13:44 Anti-Inflamma Ketorolac tromethamine Allergy Unknown Throat Uncoded 05/26/22 13:44 swelling Review of Systems Status of ROS: Reports: 10 or more systems reviewed and unremarkable except as noted in History and below Narrative: Constitutional: No fevers, no weight gain or loss. Eyes: No discharge. No vision changes. HENT: No congestion, no sore throat, no ear pain. Cardiovascular: No palpitations. Chest pain as described above. Respiratory: No wheezes, no cough. Increased shortness of breath with exertion. Gastrointestinal: Upper epigastric abdominal pain with nausea and occasional vomiting. Genitourinary: No dysuria, no hematuria. Musculoskeletal: Normal range of motion. Skin: No rashes, no pruritis. Neurological: No dizziness, sensory change, speech change. She reports some generalized weakness. Endo/Heme/Allergies: No bruising or bleeding. No polydipsia. Pysch: no suicidality, no anxiety, no insomnia. All other systems reviewed and are negative. PFSH [facility] Medical History Anxiety Asthma B12 deficiency Complications of gastric bypass surgery Elevated liver function tests Flexor tenosynovitis of thumb Gastric ulcer Gastroesophageal reflux disease History of blood transfusion History of cerebrovascular accident History of cocaine abuse History of depression History of gastric ulcer History of gastrostomy tube placement History of panic attacks History of primary hypertension Hypokalemia Iron deficiency anemia Marginal ulcer Pyelonephritis Raynaud's disease Rheumatoid arthritis Scleroderma Substance abuse Systemic sclerosis Thyroid disease Tobacco dependence syndrome Uninsured (~02/2022) Upper gastrointestinal hemorrhage Vitamin D deficiency Surgical History H/O gastric bypass History of appendectomy History of arthroscopic knee surgery History of cholecystectomy History of gastric bypass History of hysterectomy with oophorectomy History of surgery on right wrist Family History Father Alcohol abuse Colon cancer High blood pressure Sister Alcohol abuse Bipolar disorder Breast cancer Endometrial cancer Depression Hepatitis Ulcerative colitis Colon cancer Ovarian cancer Mother Anxiety disorder Bipolar disorder Heart disease Parkinsonism Colon cancer Maternal Grandmother Asthma Rheumatoid arthritis Daughter Attention deficit hyperactivity disorder (ADHD) Uncle Kidney disease Aunt Kidney disease Paternal Grandfather Rheumatoid arthritis Other Malignant melanoma Social History Narrative: She lives in [place] [place] [facility] with friend and her 12-year-old daughter. She has a significant other, Fausto Delgaod, who lives in [place]. She indicates he would be healthcare power of securities attorney. Her code status is full. , 3 children, Currently works at an office job. Smoking Status: Former smoker Do you use any of these nicotine containing products: None Second hand tobacco smoke exposure: Yes How often do you have a drink containing alcohol: never How often do you have six or more drinks on one occasion: Never AUDIT-C Alcohol total score: 0 Non-prescribed substance use: denies use service: No Exam Narrative: Exam Narrative: Constitutional: No acute distress. HEENT: Normocephalic, atraumatic. Neck: Normal range of motion. Nontender. Supple. Heart: Regular. No murmurs. Normal rate. Intact distal pulses. Lungs: Clear to auscultation. No chest discomfort. No wheezes, rhonchi, or rales. Abdomen: Normal bowel sounds. Distinct tenderness in the upper epigastric region. Genitalia: Deferred. Back: No midline tenderness. Normal range of motion. Extremities: Normal range of motion. No injury. Skin: Intact. No rash. Warm. No erythema or pallor. Neurologic: No altered sensation. No weakness. Alert and oriented. Psychiatric: No suicidality. No anxiety or depression. No insomnia. Nursing notes and vitals signs are reviewed. Const: Vital Signs, click to edit/add: Vital Signs - 24 hr 06/27/22 14:11 06/27/22 15:22 06/27/22 15:30 Temperature 97.6 F Pulse Rate 87 87 Pulse Rate [Right Pulse Oximeter] 86 Respiratory Rate 24 Blood Pressure Blood Pressure [Ri ght Upper Arm] 189/106 H Pulse Oximetry 99 95 96 Oxygen Delivery Me thod Room Air 06/27/22 15:45 06/27/22 15:55 06/27/22 15:56 Temperature Pulse Rate 89 98 99 Pulse Rate [Right Pulse Oximeter] Respiratory Rate Blood Pressure 182/101 H 175/109 H Blood Pressure [Ri ght Upper Arm] Pulse Oximetry 93 96 97 Oxygen Delivery Me thod 06/27/22 16:00 06/27/22 16:01 06/27/22 16:06 Temperature Pulse Rate 94 93 91 Pulse Rate [Right Pulse Oximeter] Respiratory Rate Blood Pressure 172/98 H 177/102 H Blood Pressure [Ri ght Upper Arm] Pulse Oximetry 96 96 97 Oxygen Delivery Me thod 06/27/22 16:11 06/27/22 16:15 06/27/22 16:16 Temperature Pulse Rate 93 96 95 Pulse Rate [Right Pulse Oximeter] Respiratory Rate Blood Pressure 179/105 H 189/109 H Blood Pressure [Ri ght Upper Arm] Pulse Oximetry 97 95 96 Oxygen Delivery Me thod 06/27/22 16:22 06/27/22 16:26 06/27/22 16:30 Temperature Pulse Rate 93 92 99 Pulse Rate [Right Pulse Oximeter] Respiratory Rate Blood Pressure 176/101 H 178/102 H Blood Pressure [Ri ght Upper Arm] Pulse Oximetry 94 95 95 Oxygen Delivery Me thod 06/27/22 16:32 06/27/22 16:38 06/27/22 16:43 Temperature Pulse Rate 97 98 94 Pulse Rate [Right Pulse Oximeter] Respiratory Rate Blood Pressure 168/95 H 165/102 H 176/104 H Blood Pressure [Ri ght Upper Arm] Pulse Oximetry 97 95 96 Oxygen Delivery Me thod 06/27/22 16:45 06/27/22 16:46 06/27/22 16:51 Temperature Pulse Rate 93 93 98 Pulse Rate [Right Pulse Oximeter] Respiratory Rate Blood Pressure 191/107 H 185/107 H Blood Pressure [Ri ght Upper Arm] Pulse Oximetry 95 93 93 Oxygen Delivery Me thod 06/27/22 17:00 06/27/22 17:01 06/27/22 17:15 Temperature Pulse Rate 95 95 102 H Pulse Rate [Right Pulse Oximeter] Respiratory Rate Blood Pressure 181/106 H Blood Pressure [Ri ght Upper Arm] Pulse Oximetry 94 93 93 Oxygen Delivery Me thod 06/27/22 17:30 06/27/22 17:31 06/27/22 17:45 Temperature Pulse Rate 93 94 97 Pulse Rate [Right Pulse Oximeter] Respiratory Rate Blood Pressure 167/96 H Blood Pressure [Ri ght Upper Arm] Pulse Oximetry 93 91 85 L Oxygen Delivery Me thod 06/27/22 18:00 06/27/22 18:01 06/27/22 18:15 Temperature Pulse Rate 93 91 93 Pulse Rate [Right Pulse Oximeter] Respiratory Rate Blood Pressure 178/118 H Blood Pressure [Ri ght Upper Arm] Pulse Oximetry 95 96 96 Oxygen Delivery Me thod 06/27/22 18:30 06/27/22 18:32 06/27/22 18:45 Temperature Pulse Rate 97 94 98 Pulse Rate [Right Pulse Oximeter] Respiratory Rate Blood Pressure 177/110 H Blood Pressure [Ri ght Upper Arm] Pulse Oximetry 97 97 95 Oxygen Delivery Me thod Course Vital Signs Vital signs: Initial Vital Signs Temperature 97.6 F 06/27/22 14:11 Temperature Source Temporal Artery Scan 06/27/22 14:11 Pulse Rate 86 06/27/22 14:11 Respiratory Rate 24 06/27/22 14:11 Blood Pressure 189/106 H 06/27/22 14:11 Blood Pressure Mean 133 06/27/22 14:11 Blood Pressure Position Sitting 06/27/22 14:11 Pulse Oximetry 99 06/27/22 14:11 Oxygen Delivery Method 06/27/22 14:11 Vital Signs Temperature 97.6 F 06/27/22 14:11 Pulse Rate 86 06/27/22 14:11 Respiratory Rate 24 06/27/22 14:11 Blood Pressure 189/106 H 06/27/22 14:11 Pulse Oximetry 99 06/27/22 14:11 Oxygen Delivery Method 06/27/22 14:11 Temperature 97.6 F 06/27/22 14:11 Pulse Rate 98 06/27/22 18:45 Respiratory Rate 24 06/27/22 14:11 Blood Pressure 177/110 H 06/27/22 18:32 Pulse Oximetry 95 06/27/22 18:45 Oxygen Delivery Method 06/27/22 14:11 Medical Decision Making MDM Narrative Medical decision making narrative: This patient comes in reporting upper epigastric pain and lower chest pain. She has a history of scleroderma and Raynaud's. It was rather difficult getting an IV in place because of her scleroderma. Eventually this occurred and labs were drawn. Her hemoglobin returns at 8.2 which is a bit better than it was last checked 5 or so days ago. Her concern about a GI bleed is at least stable if it is occurring. She did receive an IV dose of Solu-Medrol 125 mg and Dilaudid 0.2 mg. She also received a GI cocktail. Her EKG shows no ST or T-wave abnormalities. Her troponin returns just a bit positive at 0.05. A repeat troponin was acquired and returns at 0.07. At this time the patient simply wants to go home. She called for a ride and does not want any further treatment. Hearing that she has scleroderma and Raynaud's [place] asked her if she knew about crest syndrome. She states that she has this. This includes esophageal dysmotility which may be contributing to her current symptoms. Lab Data Labs: Lab Results 06/27/22 06/27/22 06/27/22 Range/Units 15:05 15:05 15:05 WBC 5.09 (4.50-11.00) K/uL RBC 3.41 L (4.00-5.20) m/uL Hgb 8.2 L (12.0-16.0) gm/dL Hct 27.6 L (33.0-51.0) % MCV 81 (80-100) fL MCH 24 L (26-34) pg MCHC 30 L (32-36) gm/dL RDW Coeff of Vinay 18.8 H (11.5-15.5) % Plt Count 167 (140-440) K/uL Neut % (Auto) 75.8 H (42.0-72.0) % Lymph % (Auto) 15.9 L (20-44) % Meriwether % (Auto) 5.9 (0.0-11.0) % Eos % (Auto) 1.6 (0.0-7.0) % Baso % (Auto) 0.6 (0.0-3.0) % Neut # (Auto) 3.90 (1.7-7.0) K/uL Lymph # (Auto) 0.80 L (0.90-2.90) K/uL Meriwether # (Auto) 0.30 (0.00-0.90) K/UL Eos # (Auto) 0.08 (0.00-0.50) K/uL Baso # (Auto) 0.03 (0.00-0.30) K/uL Sodium 139 (135-149) mmol/L Potassium 2.9 L* (3.6-5.1) mmol/L Chloride 104 (96-114) mmol/L Carbon Dioxide 28 (20-32) mmol/L BUN 21 (7-30) mg/dL Creatinine 1.0 (0.5-1.5) mg/dL Estimated Creat Clear 50.31 Estimated GFR 67 ml/min Glucose 92 (60-115) mg/dL Calcium 8.5 (8.4-10.6) mg/dL Total Bilirubin 0.6 (0.1-1.5) mg/dL Direct Bilirubin 0.2 (0.0-0.5) mg/dL AST 33 (12-35) U/L ALT 23 (4-35) U/L Alkaline Phosphatase 148 (40-150) U/L Total Protein 7.5 (6.0-8.3) g/dL Albumin 3.9 (3.3-5.0) g/dL Lipase 174 (23-300) U/L POC Troponin I 0.05 H (0.01-0.04) ng/ml 06/27/22 Range/Units 19:36 WBC (4.50-11.00) K/uL RBC (4.00-5.20) m/uL Hgb (12.0-16.0) gm/dL Hct (33.0-51.0) % MCV (80-100) fL MCH (26-34) pg MCHC (32-36) gm/dL RDW Coeff of Vinay (11.5-15.5) % Plt Count (140-440) K/uL Neut % (Auto) (42.0-72.0) % Lymph % (Auto) (20-44) % Meriwether % (Auto) (0.0-11.0) % Eos % (Auto) (0.0-7.0) % Baso % (Auto) (0.0-3.0) % Neut # (Auto) (1.7-7.0) K/uL Lymph # (Auto) (0.90-2.90) K/uL Meriwether # (Auto) (0.00-0.90) K/UL Eos # (Auto) (0.00-0.50) K/uL Baso # (Auto) (0.00-0.30) K/uL Sodium (135-149) mmol/L Potassium (3.6-5.1) mmol/L Chloride (96-114) mmol/L Carbon Dioxide (20-32) mmol/L BUN (7-30) mg/dL Creatinine (0.5-1.5) mg/dL Estimated Creat Clear Estimated GFR ml/min Glucose (60-115) mg/dL Calcium (8.4-10.6) mg/dL Total Bilirubin (0.1-1.5) mg/dL Direct Bilirubin (0.0-0.5) mg/dL AST (12-35) U/L ALT (4-35) U/L Alkaline Phosphatase (40-150) U/L Total Protein (6.0-8.3) g/dL Albumin (3.3-5.0) g/dL Lipase (23-300) U/L POC Troponin I 0.07 H (0.01-0.04) ng/ml ECG Data Attestation: I personally reviewed and interpreted this ECG as follows: Interpretation: Normal sinus rhythm. Rate is 87 beats per minute. There are no ST or T-wave abnormalities. Discharge Plan Discharge Clinical Impression: CREST syndrome, Anemia, Epigastric pain Patient Disposition: Home w/ Parent or Adult Condition: Unchanged Additional Instructions: Continue current plans. Follow up with primary physician or GI specialist. Return if worsening. Prescriptions: No Action ferrous gluconate 325 mg (37 mg iron) tablet 324 mg PO QDAY potassium chloride 10 mEq tablet extended release 20 - 40 meq PO QDAY Qty: 18 0RF Rx Instructions: take 2 tablets once, then repeat in 2 hours repeat same dosing in the morning 05/27/22; then go to 2 tablets once daily (total of 40mg tonight and 40mg tomorrow morning) sucralfate 1 gram tablet 1 g PO QID Label Comments: TAKE 1 TABLET BY MOUTH FOUR TIMES DAILY ascorbic acid (vitamin C) 500 mg tablet 500 mg PO QDAY pantoprazole [Protonix] 40 mg tablet,delayed release (DR/EC) 40 mg PO BID Qty: 180 1RF cyanocobalamin (vitamin B-12) 1,000 mcg/mL solution 1,000 mcg IM ONCE Qty: 10 4RF Rx Instructions: Once monthly for vitamin B12 deficiency venlafaxine 75 mg capsule,extended release 24hr 75 mg PO DAILY Qty: 90 3RF hydrocodone-acetaminophen 5-325 mg tablet 1 tab PO Q4-6H PRN (Reason: pain) Qty: 20 0RF Rx Instructions: For severe finger pain levothyroxine 25 mcg tablet 25 mcg PO QDAY Qty: 90 3RF Rx Instructions: Take 1 tablet daily Follow Up/Referrals: Marisa Paul PA-C [Primary Care Provider] - Stand Alone Forms: [email or web address] Instructions
[2022-06-27 15:16] LABS: Basophils Absolute Auto 0.03 K/uL (0.00-0.30); Basophils Percent Auto 0.6 % (0.0-3.0); Eosinophils Absolute Auto 0.08 K/uL (0.00-0.50); Eosinophils Percent Auto 1.6 % (0.0-7.0); Hematocrit 27.6 % (33.0-51.0); Hemoglobin* 8.2 gm/dL (12.0-16.0); Immature Granulocytes Abs Auto 0.01 K/uL (0.00-0.30); Immature Granulocytes Pct Auto 0.2 %; Lymphocytes Percent Auto 15.9 % (20-44); Mean Corpuscular HGB Conc 30 gm/dL (32-36); Mean Corpuscular Hemoglobin 24 pg (26-34); Mean Corpuscular Volume 81 fL (80-100); Monocytes Percent Auto 5.9 % (0.0-11.0); Neutrophils Percent Auto 75.8 % (42.0-72.0); Platelet Count* 167 K/uL (140-440); RDW Coefficient of Variation % 18.8 % (11.5-15.5); Red Blood Count 3.41 m/uL (4.00-5.20); White Blood Count* 5.09 K/uL (4.50-11.00)
[2022-06-27 15:17] LABS: Slide Review Reflex No
[2022-06-27 15:29] LABS: Albumin* 3.9 g/dL (3.3-5.0); Chloride* 104 mmol/L (96-114)
[2022-06-27 15:30] LABS: Sodium* 139 mmol/L (135-149)
[2022-06-27 15:32] LABS: Aspartate Amino Transferase* 33 U/L (12-35); Bilirubin Direct* 0.2 mg/dL (0.0-0.5); Bilirubin Total* 0.6 mg/dL (0.1-1.5); Carbon Dioxide* 28 mmol/L (20-32); Est. Creatinine Clearance* 50.31; Estimated Glomerular Filt Rate 67 ml/min; Total Protein* 7.5 g/dL (6.0-8.3)
[2022-06-27 15:33] LABS: Alanine Aminotransferase* 23 U/L (4-35); Alkaline Phosphatase* 148 U/L (40-150); Blood Urea Nitrogen* 21 mg/dL (7-30); Calcium* 8.5 mg/dL (8.4-10.6); Glucose* 92 mg/dL (60-115); Lipase* 174 U/L (23-300)
[2022-06-27 15:43] LABS: Troponin, Point-of-Care* 0.05 ng/ml (0.01-0.04)
[2022-06-27 15:45] LABS: Potassium* 2.9 mmol/L (3.6-5.1)
[2022-06-27] MEDS: 0.9 % SODIUM CHLORIDE 500 ML 500 ML IV (15:52)
--- NOTE | 2022-06-27 16:01 | ED.NURSE ---
is asking for something for her stomach. dr workman aware of need and also informed of potassioum of 2.9.
[2022-06-27] MEDS: GI COCKTAIL (VISC LIDO/ANTACID) 30 ML PO (16:13)
[2022-06-27] MEDS: HYDROmorphone 0.5 mg/0.5 ml inj 0.2 MG IVP (17:15)
[2022-06-27] MEDS: METHYLPREDNISOLONE SOD SUCC 62.5 MG/ML (125) 125 MG IVP (19:15)
[2022-06-27 19:53] LABS: Troponin, Point-of-Care* 0.07 ng/ml (0.01-0.04)
== END 2022-06-27 20:11 | disposition home or self-care (01) ==
PROVIDERS: Emergency Provider Emergency Medicine Emergency Medical Services; PCP Physician Assistant Medical
DX: M34.1 CR(E)ST syndrome (principal); D64.9 Anemia, unspecified; R10.13 Epigastric pain
CPT/HCPCS: 36415; 80048; 80076; 83690; 84484; 85025; 93005; 96361; 96374; 96375; 99284; 99285; A9270; J1170; J2930; J7120

== ENCOUNTER 2022-07-13 11:29 | Outpatient (CLI) | payer SELFPAY ==
[2022-07-13 21:21] LABS: Amphetamine Screen Urine Negative (Negative); Barbiturate Screen Urine Negative (Negative); Benzodiazepines Screen Urine Negative (Negative); Cocaine Screen Urine Negative (Negative); Methadone Screen Urine Negative (Negative); Methamphetamines Screen Urine Negative (Negative); Opiate Screen Urine Negative (Negative); Oxycodone Screen Urine Negative (Negative); Phencyclidine Screen Urine Negative (Negative); Tricyclic Antidepressant Urine Negative (Negative)
[2022-07-13 21:24] LABS: Cannabinoid Screen Urine POSITIVE (Negative)
[2022-07-13 21:35] LABS: Albumin* 3.8 g/dL (3.3-5.0)
[2022-07-13 21:38] LABS: Aspartate Amino Transferase* 34 U/L (12-35); Bilirubin Direct* 0.3 mg/dL (0.0-0.5); Bilirubin Total* 0.5 mg/dL (0.1-1.5); Total Protein* 7.5 g/dL (6.0-8.3)
[2022-07-13 21:39] LABS: Alanine Aminotransferase* 22 U/L (4-35); Alkaline Phosphatase* 120 U/L (40-150)
[2022-07-13 21:45] LABS: NT Pro B Type NatriureticPept* 11700 pg/mL
== END 2022-07-13 11:30 | disposition home or self-care (01) ==
PROVIDERS: PCP Physician Assistant Medical; Visit Provider Physician Assistant Medical
DX: I50.9 Heart failure, unspecified (principal); I10 Essential (primary) hypertension; E53.8 Deficiency of other specified B group vitamins; E55.9 Vitamin D deficiency, unspecified; D50.9 Iron deficiency anemia, unspecified; E87.6 Hypokalemia
CPT/HCPCS: 80076; 80306; 83880

== ENCOUNTER 2022-08-12 14:31 | Outpatient (CLI) | payer BC, SELFPAY ==
[2022-08-12 21:44] LABS: Lactate Dehydrogenase* 236 U/L (120-246)
== END 2022-08-12 14:32 | disposition home or self-care (01) ==
LOC: LKVREF 14:31
PROVIDERS: PCP Physician Assistant Medical; Visit Provider Physician Assistant Medical
DX: M34.9 Systemic sclerosis, unspecified (principal)
CPT/HCPCS: 83615

== ENCOUNTER 2022-09-21 18:44 | Emergency (ER) | payer BC, SELFPAY ==
[2022-09-21 18:54] VITALS: BP 187/97; PULSE 76; TEMP 36.9; O2SAT 100; BMI 18.2
--- NOTE | 2022-09-21 18:56 | ED_ITS ---
HPI - General Adult General Time Seen by Provider: 18:56 Date Seen: 09/21/22 Chief complaint: Chest Pain Stated complaint: Chest pain, High BP Time Seen by Provider: 09/21/22 18:46 Source: patient, RN notes reviewed and old records reviewed (Reviewed hospital summary from [facility] as well as [facility] most recently listed in chart.) Mode of arrival: ambulatory Limitations: no limitations History of Present Illness HPI narrative: Patient is a 52-year-old female coming into our ER with severe left upper quadrant abdominal pain radiating into her chest, she states her chest maybe feels full because of the abdominal symptoms. She has a PICC line in her right arm, is getting TPN. She reportedly just was out of the hospital at [facility] on the . 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 She also had 2 Hilda-Davis tears that were likely responsible for her matted emesis. She states she initially felt well but then on Monday started feeling nausea again. The last 2 days she has had more emesis. It is getting worse tonight. Maybe had a low-grade fever starting last night of 99.9-100. She also states at [facility] they diagnosed her with pneumonia. I did not see that when I looked through her discharge records. She states her medicines are the same as what they were on discharge from [facility], I will go back and look at those again. She has been taking her Protonix release trying to. She feels her blood pressures been a little elevated because she cannot take her meds, is throwing them up. Related Data Home Medications Medication Instructions Recorded Confirmed ascorbic acid (vitamin C) 500 mg 500 mg PO QDAY 12/28/21 08/17/22 tablet ferrous gluconate 325 mg (37 mg 324 mg PO QDAY 01/26/22 08/17/22 iron) tablet calcium carbonate 500 mg calcium 500 mg PO QDAY 07/13/22 08/17/22 (1,250 mg) tablet furosemide 40 mg tablet 40 mg PO QDAY 07/13/22 08/17/22 Previous Rx's Medication Instructions Recorded pantoprazole 40 mg tablet,delayed 40 mg PO BID #180 tabs 01/27/22 release (Protonix) cyanocobalamin (vitamin B-12) 1,000 mcg IM ONCE #10 mL 02/03/22 1,000 mcg/mL injection solution metoprolol succinate 50 mg 100 mg PO QDAY #180 tabs 07/13/22 tablet,extended release 24 hr potassium chloride 20 mEq oral 20 meq PO BID #100 ea 07/13/22 packet (Klor-Con) venlafaxine 150 mg 150 mg PO QAM #90 caps 07/13/22 capsule,extended release 24 hr lorazepam 1 mg tablet 0.5 - 1 mg PO Q4-6H PRN anxiety #6 07/21/22 tabs amlodipine 5 mg tablet 5 mg PO QDAY #90 tabs 08/17/22 spironolactone 25 mg tablet 25 mg PO QDAY #30 tabs 08/17/22 Allergies Allergy/AdvReac Type Severity Reaction Status Date / Time benzonatate Allergy Unknown Rash Verified 08/17/22 13:53 NSAIDS (Non-Steroidal AdvReac Verified 08/17/22 13:53 Anti-Inflamma Ketorolac tromethamine Allergy Unknown Throat Uncoded 08/17/22 13:53 swelling PFSH [facility] Medical History (Updated 09/21/22 @ 20:54 by Miranda Orozco MD) Anxiety ?F41.9 - Anxiety disorder, unspecified (ICD-10) Asthma ?J45.909 - Unspecified asthma, uncomplicated (ICD-10) B12 deficiency ?E53.8 - Deficiency of other specified B group vitamins (ICD-10) Complications of gastric bypass surgery ?K91.89 - Other postprocedural complications and disorders of digestive system (ICD-10) ?Y83.2 - Surgical operation with anastomosis, bypass or graft as the cause of abnormal reaction of the patient, or of later complication, without mention of misadventure at the time of the procedure (ICD-10) Elevated liver function tests ?R79.89 - Other specified abnormal findings of blood chemistry (ICD-10) Flexor tenosynovitis of thumb ?M65.9 - Synovitis and tenosynovitis, unspecified (ICD-10) Gastric ulcer ?K25.9 - Gastric ulcer, unspecified as acute or chronic, without hemorrhage or perforation (ICD-10) Gastroesophageal reflux disease ?K21.9 - Gastro-esophageal reflux disease without esophagitis (ICD-10) History of blood transfusion ?Z92.89 - Personal history of other medical treatment (ICD-10) History of cerebrovascular accident ?Z86.73 - Personal history of transient ischemic attack (TIA), and cerebral infarction without residual deficits (ICD-10) History of cocaine abuse ?F14.11 - Cocaine abuse, in remission (ICD-10) History of depression ?Z86.59 - Personal history of other mental and behavioral disorders (ICD-10) History of gastric ulcer ?Z87.11 - Personal history of peptic ulcer disease (ICD-10) History of gastrostomy tube placement History of panic attacks ?Z86.59 - Personal history of other mental and behavioral disorders (ICD-10) History of primary hypertension ?Z86.79 - Personal history of other diseases of the circulatory system (ICD- 10) Hypokalemia ?E87.6 - Hypokalemia (ICD-10) Iron deficiency anemia ?D50.9 - Iron deficiency anemia, unspecified (ICD-10) Marginal ulcer ?K28.9 - Gastrojejunal ulcer, unspecified as acute or chronic, without hemorrhage or perforation (ICD-10) Pyelonephritis ?N12 - Tubulo-interstitial nephritis, not specified as acute or chronic (ICD- 10) Raynaud's disease ?I73.00 - Raynaud's syndrome without gangrene (ICD-10) Rheumatoid arthritis ?M06.9 - Rheumatoid arthritis, unspecified (ICD-10) Scleroderma ?M34.9 - Systemic sclerosis, unspecified (ICD-10) Substance abuse ?F19.10 - Other psychoactive substance abuse, uncomplicated (ICD-10) Systemic sclerosis ?M34.9 - Systemic sclerosis, unspecified (ICD-10) Thyroid disease ?E07.9 - Disorder of thyroid, unspecified (ICD-10) Tobacco dependence syndrome ?F17.200 - Nicotine dependence, unspecified, uncomplicated (ICD-10) Uninsured (~02/2022) ?Z59.89 - Other problems related to housing and economic circumstances (ICD- 10) Upper gastrointestinal hemorrhage ?K92.2 - Gastrointestinal hemorrhage, unspecified (ICD-10) Vitamin D deficiency ?E55.9 - Vitamin D deficiency, unspecified (ICD-10) Surgical History H/O gastric bypass ?Z98.84 - Bariatric surgery status (ICD-10) History of appendectomy ?Z90.49 - Acquired absence of other specified parts of digestive tract (ICD- 10) History of arthroscopic knee surgery ?Z98.890 - Other specified postprocedural states (ICD-10) History of cholecystectomy ?Z90.49 - Acquired absence of other specified parts of digestive tract (ICD- 10) History of gastric bypass ?Z98.84 - Bariatric surgery status (ICD-10) History of hysterectomy with oophorectomy History of surgery on right wrist ?Z98.890 - Other specified postprocedural states (ICD-10) Family History Father Alcohol abuse Colon cancer High blood pressure Sister Alcohol abuse Bipolar disorder Breast cancer Endometrial cancer Depression Hepatitis Ulcerative colitis Colon cancer Ovarian cancer Mother Anxiety disorder Bipolar disorder Heart disease Parkinsonism Colon cancer Maternal Grandmother Asthma Rheumatoid arthritis Daughter Attention deficit hyperactivity disorder (ADHD) Uncle Kidney disease Aunt Kidney disease Paternal Grandfather Rheumatoid arthritis Other Malignant melanoma Social History Narrative: She lives in [facility] with friend and her 12-year-old daughter. She has a significant other, Fausto Delgado, who lives in [place]. She indicates he would be healthcare power of patent prosecution attorney. Her code status is full. , 3 children, Currently works at an office job. Smoking Status: Former smoker Do you use any of these nicotine containing products: None Second hand tobacco smoke exposure: Yes How often do you have a drink containing alcohol: never How often do you have six or more drinks on one occasion: Never AUDIT-C Alcohol total score: 0 Non-prescribed substance use: denies use service: No Exam Const: Vital Signs, click to edit/add: Vital Signs - 24 hr 09/21/22 18:54 09/21/22 19:02 09/21/22 20:28 Temperature 98.5 F Pulse Rate Pulse Rate [Pulse Oximeter] 76 Blood Pressure 184/98 H Blood Pressure [Le ft Upper Arm] 187/97 H Pulse Oximetry 100 100 Oxygen Delivery Me thod Room Air 09/21/22 20:32 Temperature Pulse Rate 62 Pulse Rate [Pulse Oximeter] Blood Pressure 179/98 H Blood Pressure [Le ft Upper Arm] Pulse Oximetry 96 Oxygen Delivery Me thod Documenting provider has reviewed patient's vital signs: yes Common normals: oriented x3 and alert General appearance: cooperative, ill appearing and frail appearing Nutritional appearance: cachectic HENMT: Common normals: normocephalic and head/scalp atraumatic Head and scalp: normocephalic and atraumatic Eye: Common normals: PERRL, EOMs intact bilaterally, conjunctivae normal and no scleral icterus Conjunctiva: conjunctiva(e) normal Pupil: PERRL Neck & C-Spine: Common normals: full ROM, no lymphadenopathy and supple Resp: Common normals: normal respiratory effort, no retractions, no use of accessory muscles and clear to auscultation bilaterally Auscultation: clear to auscultation bilaterally Cardio: Common normals: regular rate, regular rhythm, S1 normal heart sound, S2 normal heart sound, no gallops, no clicks and no murmurs Rate: regular rate Rhythm: regular rhythm Heart sounds: S1 normal and S2 normal GI: Common normals: Normal to inspection, nondistended, normoactive bowel sounds present, soft to palpation, no hepatosplenomegaly and no masses Palpation: soft and no hepatosplenomegaly Other: Left upper quadrant tenderness with no guarding but she does seem like she has some rebound. I do not feel any mass. Neuro: Common normals: oriented x3 Sensorium/orientation: alert Course Course Hospital Course: Need to consider infective etiology, possible chest pain that could be cardiac or ischemic in nature, heart failure, worsening pneumonia. Her nausea vomiting certainly could be obstructive pathology. She is on multiple medications to help combat her GI symptoms with Reglan and Zofran Protonix Compazine Carafate and senna. She also takes Tums and calcium. Did preemptively talked to our hospitalist and this is someone they feel would be best served elsewhere if she does need admission, unfortunately feel there is a high probability of this. We will do full complement of labs, a.m. doing a chest x-ray and flat and upright to start for imaging. Will initiate IV with a little low-dose IV fluids due to the nausea vomiting but being careful to not fluid overload her. Will give her 4 mg IV Zofran and 40 mg IV Protonix. Reevaluation(s) Reevaluation #1: Reviewed with patient her chest x-ray is not showing any definitive pathology. Her flat and upright show some significant stool burden but no obstructive bowel pattern. She states she is not feeling constipated and she knows when she is constipated. She maybe had to strain a little bit to go yesterday but had a good stool volume. She states she had normal stool today. She is having bad heartburn right now, we have given the Zofran and the Protonix. Time: 20:21 Consultations Consultation #1: Called [facility], they have no beds throughout any of their facilities. Patient is advised of this. She is requesting to go home. I have offered to try to contact other facilities and she adamantly states she does not want to do that. She is going to go home and see if she can work on producing stool. She declines any enemas from us here. She states if she worsens she plans on seeking care at [facility] of the [facility]. Note later her came in as I was dictating, stating she did want to try an enema here. We certainly can try that, may help get stuff started. Will try fleets enema as she has an allergy to 1 of the components of Enemeez, the benzonatate. Time: 20:44 Vital Signs Vital signs: Initial Vital Signs Temperature 98.5 F 09/21/22 18:54 Temperature Source Temporal Artery Scan 09/21/22 18:54 Pulse Rate 76 09/21/22 18:54 Blood Pressure 187/97 H 09/21/22 18:54 Blood Pressure Mean 127 09/21/22 18:54 Blood Pressure Position Sitting 09/21/22 18:54 Pulse Oximetry 100 09/21/22 18:54 Oxygen Delivery Method Room Air 09/21/22 18:54 Vital Signs Temperature 98.5 F 09/21/22 18:54 Pulse Rate 76 09/21/22 18:54 Blood Pressure 187/97 H 09/21/22 18:54 Pulse Oximetry 100 09/21/22 18:54 Oxygen Delivery Method Room Air 09/21/22 18:54 Temperature 98.5 F 09/21/22 18:54 Pulse Rate 62 09/21/22 20:32 Blood Pressure 179/98 H 09/21/22 20:32 Pulse Oximetry 96 09/21/22 20:32 Oxygen Delivery Method Room Air 09/21/22 18:54 Medical Decision Making Lab Data Lab results reviewed: Yes I reviewed the patient's lab results Labs: Lab Results 09/21/22 09/21/22 Range/Units 19:04 19:07 WBC 7.78 (4.50-11.00) K/uL RBC 3.07 L (4.00-5.20) m/uL Hgb 9.0 L (12.0-16.0) gm/dL Hct 28.6 L (33.0-51.0) % MCV 93 (80-100) fL MCH 29 (26-34) pg MCHC 32 (32-36) gm/dL RDW Coeff of Vinay 24.3 H (11.5-15.5) % Plt Count 154 (140-440) K/uL Neut % (Auto) 75.5 H (42.0-72.0) % Lymph % (Auto) 14.3 L (20-44) % [place] % (Auto) 7.5 (0.0-11.0) % Eos % (Auto) 2.1 (0.0-7.0) % Baso % (Auto) 0.5 (0.0-3.0) % Neut # (Auto) 5.90 (1.7-7.0) K/uL Lymph # (Auto) 1.10 (0.90-2.90) K/uL [place] # (Auto) 0.60 (0.00-0.90) K/UL Eos # (Auto) 0.16 (0.00-0.50) K/uL Baso # (Auto) 0.04 (0.00-0.30) K/uL Sodium 138 (135-149) mmol/L Potassium 3.8 (3.6-5.1) mmol/L Chloride 106 (96-114) mmol/L Carbon Dioxide 27 (20-32) mmol/L BUN 32 H (7-30) mg/dL Creatinine 2.0 H (0.5-1.5) mg/dL Estimated Creat Clear 24.69 Estimated GFR 29 ml/min Glucose 96 (60-115) mg/dL Calcium 8.6 (8.4-10.6) mg/dL Total Bilirubin 0.5 (0.1-1.5) mg/dL AST 30 (12-35) U/L ALT 29 (4-35) U/L Alkaline Phosphatase 130 (40-150) U/L C-Reactive Protein 0.5 (0.5-1.0) mg/dL NT-Pro-B Natriuret Pep 95962 pg/mL Total Protein 7.7 (6.0-8.3) g/dL Albumin 4.0 (3.3-5.0) g/dL Lipase 318 H (23-300) U/L Procalcitonin 0.13 (<0.50) ng/mL SARS-CoV-2 (PCR) Negative SARS-CoV-2 (Negative) Influenza Type A (PCR) Negative PCR FLU A (Negative) Influenza Type B (PCR) Negative PCR FLU B (Negative) RSV (PCR) Negative PCR RSV (Negative) POC Troponin I 0.01 (0.01-0.04) ng/ml Imaging Data Chest x-ray: Attestation: I have reviewed the pertinent imaging results. Radiologist's impression: Patient: [facility] Facility:[facility] Patient ID:?[id number] Site Patient ID:?[id number]. Site :?[id number] Study:?XRay Chest 2V-09/21/2022 7:57:06 PM Ordering Physician:?Pam Jean Final Report: INDICATION: Fever. TECHNIQUE: Chest 2 view. COMPARISON: 03/01/2022. FINDINGS: Cardiovascular and mediastinum: Heart size and vasculature are normal in caliber and appearance. Lungs and pleural spaces: Lungs are clear. No sign of infiltrate or mass. No sign of pleural effusion. No pneumothorax. Bones and soft tissues: No significant findings. IMPRESSION: No acute pulmonary process. Dictated by Sherwin Michael MD @ 09/21/2022 8:12:07 PM (Electronic Signature) Abdominal x-ray: Attestation: I have reviewed the pertinent imaging results. Radiologist's impression: Patient: [facility] Facility:[facility] Patient ID:?[id number] Site Patient ID:?[id number]. Site :?[id number] Study:?XRay Abdomen/Pelvis 2V-09/21/2022 7:58:01 PM Ordering Physician:Jamar Jean Final Report: INDICATION: Left upper quadrant abdominal pain. Nausea, vomiting. TECHNIQUE: Abdomen 2 views. COMPARISON: None. FINDINGS: Bowel: Bowel pattern is normal. Large colonic stool burden. Other: No sign of free air. No suspicious calcifications. Cholecystectomy clips. Surgical anastomosis line in the left abdomen. Osseous structures are unremarkable for age. IMPRESSION: Nonobstructive bowel gas pattern with large colonic stool burden. Dictated by Sherwin Michael MD @ 09/21/2022 8:14:52 PM (Electronic Signature) ECG Data Attestation: I personally reviewed and interpreted this ECG as follows: (Normal sinus rhythm, 73 beats per minute. No evidence of any ischemic change. QT corrected 456 milliseconds.) Prior ECG tracings: not available for review Critical Care Time Critical Care Time Critical Care Time: No Discharge Plan Discharge Clinical Impression: Nausea & vomiting Patient Disposition: Home, Self-Care Condition: Unchanged Instructions: Constipation (ED), Acute Nausea and Vomiting (DC) Additional Instructions: If clearing out from possible constipation/stool overload is not alleviating your nausea vomiting within the next 24 hours, do recommend re-evaluation where there is [facility]. We do not have their here at [place]. Continue with your medicines at home including the nausea medicines so that you hopefully can take your other prescriptions. Unfortunately, there were no beds to transfer you to [facility] and you declined us contacting other facilities. I certainly think that you may need hospitalization if you have ongoing symptoms and would urge you to consider getting to your institution where you had your majority of care which is the [facility]. Prescriptions: No Action ferrous gluconate 325 mg (37 mg iron) tablet 324 mg PO QDAY furosemide 40 mg tablet 40 mg PO QDAY calcium carbonate 500 mg calcium (1,250 mg) tablet 500 mg PO QDAY venlafaxine 150 mg capsule,extended release 24hr 150 mg PO QAM Qty: 90 0RF Rx Instructions: new increased dosing; once daily for mood metoprolol succinate 50 mg tablet extended release 24 hr 100 mg PO QDAY Qty: 180 0RF Rx Instructions: Increased dose Take 2 tablets once a day for blood pressure potassium chloride [Klor-Con] 20 mEq packet 20 meq PO BID Qty: 100 1RF Rx Instructions: 1 pack twice daily amlodipine 5 mg tablet 5 mg PO QDAY Qty: 90 0RF Rx Instructions: once daily for blood pressure spironolactone 25 mg tablet 25 mg PO QDAY Qty: 30 0RF Rx Instructions: once daily in the morning for blood pressure ascorbic acid (vitamin C) 500 mg tablet 500 mg PO QDAY pantoprazole [Protonix] 40 mg tablet,delayed release (DR/EC) 40 mg PO BID Qty: 180 1RF cyanocobalamin (vitamin B-12) 1,000 mcg/mL solution 1,000 mcg IM ONCE Qty: 10 4RF Rx Instructions: Once monthly for vitamin B12 deficiency lorazepam 1 mg tablet 0.5 - 1 mg PO Q4-6H PRN (Reason: anxiety) Qty: 6 0RF Rx Instructions: Take 1/2-1 tablet every 4-6 hours as needed for panic Follow Up/Referrals: Marisa Paul PA-C [Primary Care Provider] - Stand Alone Forms: MyHealth Info Instructions
[2022-09-21 19:02] VITALS: O2SAT 100
--- NOTE | 2022-09-21 19:02 | CRLHL7_ITS ---
For Patients: As a result of the Century Cures Act, medical imaging exams and procedure reports are released immediately into your electronic medical record. You may view this report before your referring provider. If you have questions, please contact your health care provider. INDICATION: Left upper quadrant abdominal pain. Nausea, vomiting. TECHNIQUE: Abdomen 2 views. COMPARISON: None. FINDINGS: Bowel: Bowel pattern is normal. Large colonic stool burden. Other: No sign of free air. No suspicious calcifications. Cholecystectomy clips. Surgical anastomosis line in the left abdomen. Osseous structures are unremarkable for age. IMPRESSION: Nonobstructive bowel gas pattern with large colonic stool burden. Dictated by Sherwin Michael MD @ 09/21/2022 8:14:52 PM (Electronically Signed)
--- NOTE | 2022-09-21 19:02 | CRLHL7_ITS ---
For Patients: As a result of the Century Cures Act, medical imaging exams and procedure reports are released immediately into your electronic medical record. You may view this report before your referring provider. If you have questions, please contact your health care provider. INDICATION: Fever. TECHNIQUE: Chest 2 view. COMPARISON: 03/01/2022. FINDINGS: Cardiovascular and mediastinum: Heart size and vasculature are normal in caliber and appearance. Lungs and pleural spaces: Lungs are clear. No sign of infiltrate or mass. No sign of pleural effusion. No pneumothorax. Bones and soft tissues: No significant findings. IMPRESSION: No acute pulmonary process. Dictated by Sherwin Michael MD @ 09/21/2022 8:12:07 PM (Electronically Signed)
[2022-09-21 19:20] LABS: Basophils Absolute Auto 0.04 K/uL (0.00-0.30); Basophils Percent Auto 0.5 % (0.0-3.0); Eosinophils Absolute Auto 0.16 K/uL (0.00-0.50); Eosinophils Percent Auto 2.1 % (0.0-7.0); Hematocrit 28.6 % (33.0-51.0); Immature Granulocytes Abs Auto 0.01 K/uL (0.00-0.30); Immature Granulocytes Pct Auto 0.1 %; Lymphocytes Percent Auto 14.3 % (20-44); Mean Corpuscular HGB Conc 32 gm/dL (32-36); Mean Corpuscular Hemoglobin 29 pg (26-34); Mean Corpuscular Volume 93 fL (80-100); Monocytes Percent Auto 7.5 % (0.0-11.0); Neutrophils Percent Auto 75.5 % (42.0-72.0); Platelet Count* 154 K/uL (140-440); RDW Coefficient of Variation % 24.3 % (11.5-15.5); Red Blood Count 3.07 m/uL (4.00-5.20); White Blood Count* 7.78 K/uL (4.50-11.00)
[2022-09-21] MEDS: ONDANSETRON 2 MG/ML inj 4 MG IVP (19:20)
[2022-09-21] MEDS: PANTOPRAZOLE SODIUM 40 MG INJ IVP (19:20)
[2022-09-21] MEDS: 0.9 % SODIUM CHLORIDE 250 ml 250 ML IV (19:20)
[2022-09-21 19:22] LABS: Troponin, Point-of-Care* 0.01 ng/ml (0.01-0.04)
[2022-09-21 19:28] LABS: Slide Review Reflex No
[2022-09-21 19:46] LABS: Alanine Aminotransferase* 29 U/L (4-35); Alkaline Phosphatase* 130 U/L (40-150); Aspartate Amino Transferase* 30 U/L (12-35); Bilirubin Total* 0.5 mg/dL (0.1-1.5); Blood Urea Nitrogen* 32 mg/dL (7-30); C Reactive Protein* 0.5 mg/dL (0.5-1.0); Calcium* 8.6 mg/dL (8.4-10.6); Carbon Dioxide* 27 mmol/L (20-32); Chloride* 106 mmol/L (96-114); Est. Creatinine Clearance* 24.69; Estimated Glomerular Filt Rate 29 ml/min; Glucose* 96 mg/dL (60-115); Lipase* 318 U/L (23-300); NT Pro B Type NatriureticPept* 14300 pg/mL; Potassium* 3.8 mmol/L (3.6-5.1); Sodium* 138 mmol/L (135-149); Total Protein* 7.7 g/dL (6.0-8.3)
[2022-09-21 19:54] LABS: Procalcitonin* 0.13 ng/mL (<0.50)
[2022-09-21 19:56] LABS: PCR FLU A Negative PCR FLU A (Negative); PCR FLU B Negative PCR FLU B (Negative); PCR RSV Negative PCR RSV (Negative); SARS PCR* Negative SARS-CoV-2 (Negative)
[2022-09-21 20:28] VITALS: BP 184/98
[2022-09-21 20:32] VITALS: BP 179/98; PULSE 62; O2SAT 96
--- NOTE | 2022-09-21 21:13 | ED.NURSE ---
Fleets enema administered per orders. Patient did not have results. MD aware.
== END 2022-09-21 21:15 | disposition home or self-care (01) ==
PROVIDERS: Emergency Provider Family Medicine; PCP Physician Assistant Medical
DX: R11.2 Nausea with vomiting, unspecified (principal)
CPT/HCPCS: 36415; 71046; 74019; 80053; 83690; 83880; 84145; 84484; 85025; 86140; 87040; 87502; 87634; 87635; 93005; 94761; 96374; 96375; 99284; 99285; C9113; J2405; J7050

== ENCOUNTER 2022-09-22 14:51 | Outpatient (CLI) | payer BC, SELFPAY | END 2022-09-22 14:52 | disposition home or self-care (01) | PROVIDERS: PCP Physician Assistant Medical; Visit Provider Physician Assistant Medical | DX: N18.9 Chronic kidney disease, unspecified (principal); I10 Essential (primary) hypertension; D50.9 Iron deficiency anemia, unspecified; E55.9 Vitamin D deficiency, unspecified; R79.89 Other specified abnormal findings of blood chemistry; E07.9 Disorder of thyroid, unspecified; E87.6 Hypokalemia | CPT/HCPCS: 80306 ==

== ENCOUNTER 2022-10-06 17:07 | Outpatient (CLI) | payer BC, SELFPAY | END 2022-10-06 17:08 | disposition home or self-care (01) | LOC: NFLDREF 10-08 03:38 | PROVIDERS: PCP Physician Assistant Medical; Referring Provider Physician Assistant Medical; Visit Provider Registered Nurse | DX: R30.0 Dysuria (principal) | CPT/HCPCS: 87086 ==